=== PATIENT | female | born 1940 | race Caucasian/White ===

== ENCOUNTER 2017-05-24 13:19 | Inpatient (IN) | payer MEDICARE ==
[~2017-05-24] VITALS: Ht 170.2 cm; Wt 58.5 kg
[2017-05-24] MEDS: LEVALBUTEROL HCL SOLN NEBU 0.63 MG/3 ML NEB INH SCH (00:35)
[2017-05-24] MEDS: IPRATROPIUM BROMIDE 0.02% 2.5 ML NEB NEB SCH (00:35)
[~2017-05-24 13:19] MED LIST: ALPRAZOLAM0.25 MG; FOLIC ACID1 MG; MEDROL4 MG; METHOTREXATE2.5 MG PO; MEVACOR20 MG PO; PREVACID30 MG
[2017-05-24] MEDS ORDERED: SODIUM CHLORIDE 0.9% 500ML 500 ML IV STA (13:26)
[2017-05-24] MEDS ORDERED: IPRATROPIUM BROMIDE 0.02% 2.5 ML NEB NEB STA (13:26)
[2017-05-24] MEDS ORDERED: ALBUTEROL SULF 0.083% NEB SOLN 3 ML NEB NEB STA (13:26)
[2017-05-24 13:47] LABS: BILIRUBIN,URINE 1+ (NEGATIVE); KETONES,URINE TRACE (NEGATIVE); LEUKOCYTE ESTERASE ,URINE 2+ (NEGATIVE); NITRITE,URINE NEGATIVE (NEGATIVE); URINE UROBILINOGEN 8 mg/dL (0.2 - 1)
[2017-05-24 13:49] LABS: CLARITY,URINE HAZY (CLEAR); COLOR,URINE YELLOW (YELLOW); PROTEIN,URINE DIPSTICK 2+ (NEGATIVE)
[2017-05-24 14:01] LABS: AMORPHOUS SEDIMENT,URINE FEW (FEW); BACTERIA,URINE MODERATE /HPF; EPITHELIAL CELLS,URINE FEW /LPF; HYALINE CASTS 0-1 (0-1); RBC,URINE 0-5 /HPF (0-5)
[2017-05-24 14:12] LABS: INFLUENZAE A&B ANTIGEN (RAPID) NEGATIVE (NEGATIVE); STREPTOCOCCUS GRP A ANTIGEN NEGATIVE (NEGATIVE)
[2017-05-24 14:14] LABS: BASOPHILS # (AUTO) 0.1 (0.0-0.1); BASOPHILS % 0.3 % (0.0-1.0); EOSINOPHILS # (AUTO) 0.1 (0.0-0.4); EOSINOPHILS % 0.3 % (0.0-6.0); HEMATOCRIT 41.3 % (34.2-44.1); HEMOGLOBIN 13.2 g/dL (12.0-16.0); LYMPHOCYTES # (AUTO) 1.4 (1.0-3.2); MEAN CORPUSCULAR HEMOGLOBIN 29.5 pg (28-32); MEAN CORPUSCULAR VOLUME 92.4 fL (81-99); MONOCYTES # (AUTO) 2.2 (0.2-0.8); MONOCYTES % 11.5 % (4.4-11.3); NEUTROPHILS # (AUTO) 15.6 (2.1-6.9); NEUTROPHILS % 80.1 % (38.7-80.0); PLATELET COUNT 340 x10e3/uL (140-360); RED BLOOD COUNT 4.47 x10e6/uL (3.6-5.1); RED CELL DISTRIBUTION WIDTH 14.5 % (11.7-14.4)
[2017-05-24] MEDS ORDERED: SODIUM CHLORIDE 0.9% 1000ML 1,000 ML IV STA ×3 (14:19→16:07)
[2017-05-24] MEDS ORDERED: ENOXAPARIN SODIUM INJ 100 MG/ML SYR SC STA (14:26)
[2017-05-24 14:27] LABS: INR 1.11; PROTHROMBIN TIME 14.9 seconds (11.9-14.5)
[2017-05-24] MEDS ORDERED: DILTIAZEM HCL 5 MG/ML 5 ML VIAL IV ONE ×2 (14:30→15:30)
[2017-05-24 14:35] LABS: ALBUMIN 3.1 g/dL (3.5-5.0); ALBUMIN/GLOBULIN RATIO 0.8 (0.8-2.0); ANION GAP 14.7 mmol/L (8-16); CALCIUM 9.6 mg/dL (8.4-10.2); CREATININE, SERUM 1.02 mg/dL (0.57-1.11); MAGNESIUM 1.6 MG/DL (1.3-2.1); POTASSIUM 3.7 mmol/L (3.5-5.1)
[2017-05-24 14:58] LABS: CREATINE KINASE MB 1.1 ng/mL (0.00-5.00); THYROID STIMULATING HORMONE 0.913 uIU/mL (0.350-4.940)
[2017-05-24] MEDS ORDERED: DILTIAZEM HCL VIAL 5 ML ONE (15:08)
[2017-05-24] MEDS ORDERED: SODIUM CHLORIDE 0.9% 1000ML 1,000 ML ONE (15:08)
[2017-05-24] MEDS ORDERED: AMIODARONE 900MG 500 ML IV ONE (15:23)
[2017-05-24] MEDS ORDERED: AMIODARONE HCL 100 ML IV ONE (15:24)
[2017-05-24 15:27] LABS: B-TYPE NATRIURETIC PEPTIDE2 239.4 pg/mL (0-100)
--- NOTE | 2017-05-24 15:33 | Diagnostic Imaging Report ---
EXAMINATION: CHEST SINGLE (PORTABLE) INDICATION: Cough and congestion. \S\ORDER PLACED BY \S\[id number] \S\[id number] \S\Y COMPARISON: None available. FINDINGS: AP view TUBES and LINES: None. LUNGS: Lungs are hyperinflated. Bilateral upper lobe opacities, left more than right. PLEURA: No pleural effusion or pneumothorax. HEART AND MEDIASTINUM: The cardiomediastinal silhouette is unremarkable. Aorta is calcified and tortuous. BONES AND SOFT TISSUES: No acute osseous lesion. Soft tissues are unremarkable. UPPER ABDOMEN: No free air under the diaphragm. IMPRESSION: Bilateral upper lobe airspace opacities, left more than right, concerning for pneumonia. Emphysematous changes. Signed by: Dr. Danilo Newton MD on 05/24/2017 3:30 PM
[2017-05-24] MEDS ORDERED: CEFTRIAXONE SOD 1 GM VIAL IV ONE (16:00)
[2017-05-24] MEDS ORDERED: AMIODARONE HCL 900 MG in DEXTROSE 5 % 500ML BOTTLE 482 ML IV SCH ×2 (16:00→16:30)
[2017-05-24] MEDS ORDERED: LEVALBUTEROL HCL SOLN NEBU 0.63 MG/3 ML NEB INH ONE (16:00)
[2017-05-24] MEDS ORDERED: CEFTRIAXONE SOD 1 GM VIAL IV SCH (16:00)
[2017-05-24] MEDS ORDERED: SODIUM CHLORIDE 0.9% 1000ML 1,000 ML IV SCH (16:12)
[2017-05-24] MEDS ORDERED: AMIODARONE HCL 150 MG/100 ML BAG IV ONE (16:30)
[2017-05-24] MEDS: AZITHROMYCIN 500MG/NS 250 ML 250 ML IV SCH (16:31)
[2017-05-24] MEDS ORDERED: VITAMIN D35000 UNI1 PO (16:35)
[2017-05-24] MEDS ORDERED: LOVASTATIN20 MG PO (16:35)
[2017-05-24] MEDS ORDERED: methylprednisolone PO (16:35)
[2017-05-24] MEDS ORDERED: [UNRECOGNIZED DRUG - OTHER] (16:35)
[2017-05-24] MEDS ORDERED: DIGOXIN INJ 0.25 MG/ML 2 ML AMP IV ONE ×3 (17:00→18:30)
[2017-05-24] MEDS ORDERED: DIGOXIN INJ 0.25 MG/ML 2 ML AMP ONE (17:16)
[2017-05-24 17:51] LABS: FREE T4 (FREE THYROXINE) 1.63 ng/dL (0.8-1.8); FREE THYROXINE INDEX 3.2116 (1.4-3.8)
[2017-05-24 18:06] LABS: ABG HCO3 22 mmol/L (23-28); ABG PCO2 47 mmHg (41-51); ABG PH 7.27 (7.31-7.41); ABG PO2 304 mmHg (80-105)
[2017-05-24] MEDS: RIVAROXABAN 15 MG TABLET PO SCH (18:20)
--- NOTE | 2017-05-24 18:22 | Consultation ---
DATE OF CONSULTATION: CARDIOLOGY CONSULTATION ATTENDING PHYSICIAN: Dr. Mark Dewitt. CLINICAL HISTORY: This is a 76-year-old white woman with history of COPD possibly related to secondhand smoking, possibly related to asbestosis exposure. Seen in the emergency room at [facility]. Referred by Dr. Mark Dewitt because of rapid atrial fibrillation with ventricular rates of 180 beats per minute with hypotension, blood pressure 84/52. The patient was given almost 3 liters of saline because of low blood pressure. She states that she has been drinking water all day, approximately on the average of 3 bottles per day. This patient has no previous history of atrial fibrillation, no previous history of cardiac arrhythmias. However, she says she has been having some palpitations over the past 3 months, possibly worse in the past week or so. She has been wheezing for quite some time, possibly 6 months to a year. Has seen Dr. Mark Dewitt for 3 years with diagnosis of COPD. However, wheezing appears to be worse. She also has been sleepy. She sees a sensor technician because of rheumatoid arthritis and it was suggested by the sensor technician some time back that she may need a blood thinner. There is no previous mention of atrial fibrillation, however. PAST MEDICAL HISTORY: Remarkable for the above-mentioned conditions. There is history of hyperlipidemia, on lovastatin. She is taking methotrexate, Medrol, as well as folic acid, vitamin D3. PERSONAL AND SOCIAL HISTORY: Stopped smoking at age 20. was a heavy smoker. 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 REVIEW OF SYSTEMS: Noncontributory. FAMILY HISTORY: Deferred. PHYSICAL EXAMINATION GENERAL: She is thin, appears to be wheezing. CARDIAC: Jugular veins were mildly distended. S1 and S2 were irregularly irregular, rapid. LUNGS: Show wheezing. ABDOMEN: Soft. Bowel sounds were present. EXTREMITIES: Show no cyanosis, clubbing or edema. LABORATORY STUDIES: Electrocardiogram showed atrial fibrillation, rapid ventricular response 181 beats per minute. After digoxin and Cardizem, heart rate dropped to 101. IMPRESSION 1. Rapid atrial fibrillation with ventricular rates of 181 beats per minute of undetermined age, possibly as old as 3 months. The patient has had some complaints of palpitations over the past 3 months. This may actually cause her low blood pressure rather than dehydration. 2. Somewhat doubtful for the dehydration since the patient has been drinking water constantly, on the average 3 bottles per day. 3. Her hypotension may also be caused by measurement error since the patient has rapid atrial fibrillation. 4. Chronic obstructive pulmonary disease, possibly due to secondhand smoke. 5. Rule out pulmonary asbestosis with the being a sandblaster glass and possible asbestos exposure. 6. Rheumatoid arthritis. 7. Hyperlipidemia. RECOMMENDATION: Rate control for the time-being. Consider transesophageal echocardiogram and electrical cardioversion. Consider cardioversion if there is further hemodynamic instability or inability to slow down the rate. Anticoagulation. Treatment for COPD since she is wheezing. Avoid excessive volume overload. The patient has already received 2.5 to 3 liters of saline. Echocardiogram is pending. Thyroid function studies are pending. Job#: [id number] cc:MARK DEWITT MD
[2017-05-24] MEDS ORDERED: POTASSIUM CHLORIDE 10 MEQ TABCR PO ONE (18:30)
[2017-05-24] MEDS ORDERED: FUROSEMIDE INJ 10 MG/ML 4 ML VIAL IV ONE (18:30)
[2017-05-24] MEDS ORDERED: HYDROCORTISONE SOD SUCCINATE 100 MG VIAL IV ONE (18:30)
--- NOTE | 2017-05-24 20:35 | Diagnostic Imaging Report ---
EXAM: CT Chest WITH contrast 05/24/2017 2:26 PM INDICATION: Pulmonary embolism, atrial fibrillation. COMPARISON: Chest x-ray on 05/24/2017. TECHNIQUE: Chest was scanned utilizing a multidetector helical scanner from the lung apex through the level of the adrenal glands without administration of IV contrast. Coronal and sagittal reformations were obtained. Routine protocol was performed. IV CONTRAST: 100 mL of Isovue-370 RADIATION DOSE: Total DLP: 397.28 mGy*cm Estimated effective dose: (DLP x 0.014 x size factor) mSv COMPLICATIONS: None. FINDINGS: LINES/ TUBES: None. LUNGS AND AIRWAYS: Extensive bilateral apical scarring and bronchiectasis with cavitary lesions including some areas in the left upper lobe peripheral pleural-based opacities and lingula. The scarring, cavitary lesions and traction bronchiectasis are most likely related to prior granulomatous disease. Some of the cavities in the right apex are filled with a nodular component as seen on series 2, image 24 suspicious for fungal infection. There is a 2.2 cm pleural-based nodule in the left upper lobe on series 2, image 37 Airways are normal. PLEURA: Small bilateral pleural effusions left greater than right. HEART AND MEDIASTINUM: The thyroid gland is normal. No mediastinal, hilar or axillary lymphadenopathy. The heart is normal in size.. There is no pericardial effusion. The pulmonary artery measures 3 cm in diameter, mildly dilated UPPER ABDOMEN: Large hiatal hernia visualized. BONES: There are degenerative changes in the thoracic spine. SOFT TISSUES: Unremarkable. IMPRESSION: 1. No evidence of pulmonary embolism. 2. Bilateral apical scarring, bronchiectasis and fibrosis most likely related to prior granulomatous disease. 3. Cavitary lesion filled with a soft tissue nodule may represent fungal infection in the appropriate clinical setting within the right upper lobe. 4. A 2.2 cm pleural-based nodule in the left upper lobe is suspicious for neoplasm. Signed by: Dr. Rojas Bennett M.D. on 05/24/2017 8:31 PM
[2017-05-24] MEDS ORDERED: ASPIRIN 81 MG CHEW TAB PO ONE (22:30)
[2017-05-24] MEDS ORDERED: SODIUM CHLORIDE 0.9% 50ML 50 ML ONE (23:21)
[2017-05-24] MEDS ORDERED: IOPAMIDOL 370 MG/ML 200 ML INFUS..BTL INJ ONE (23:21)
[2017-05-24 23:53] LABS: CREATINE KINASE MB 2.6 ng/mL (0.00-5.00)
[2017-05-25 06:06] LABS: ANION GAP 14.3 mmol/L (8-16); BLOOD UREA NITROGEN 15 mg/dL (7-26); BUN/CREATININE RATIO 19 (6-25); CALCIUM 8.3 mg/dL (8.4-10.2); CARBON DIOXIDE 25 mmol/L (22-29); CHLORIDE 105 mmol/L (98-107); EST GLOMERULAR FILTRATION RATE > 60 ML/MIN (60-); GLUCOSE 119 mg/dL (74-118); POTASSIUM 3.3 mmol/L (3.5-5.1); SODIUM 141 mmol/L (136-145)
[2017-05-25 06:37] LABS: CREATINE KINASE MB 2.5 ng/mL (0.00-5.00)
[2017-05-25] MEDS: IPRATROPIUM BROMIDE 0.02% 2.5 ML NEB NEB SCH ×2 (07:22→14:36)
[2017-05-25] MEDS: LEVALBUTEROL HCL SOLN NEBU 0.63 MG/3 ML NEB INH SCH ×2 (07:22→14:36)
[2017-05-25 07:34] LABS: BASOPHILS % 0.2 % (0.0-1.0); HEMATOCRIT 35.9 % (34.2-44.1); HEMOGLOBIN 11.3 g/dL (12.0-16.0); LYMPHOCYTES # (AUTO) 0.7 (1.0-3.2); LYMPHOCYTES % 5.4 % (18.0-39.1); MEAN CORPUSCULAR HEMOGLOBIN 29.4 pg (28-32); MEAN CORPUSCULAR HGB CONC 31.5 g/dL (31-35); MEAN CORPUSCULAR VOLUME 93.5 fL (81-99); MONOCYTES # (AUTO) 0.8 (0.2-0.8); MONOCYTES % 6.6 % (4.4-11.3); NEUTROPHILS # (AUTO) 10.9 (2.1-6.9); NEUTROPHILS % 86.7 % (38.7-80.0); PLATELET COUNT 324 x10e3/uL (140-360); RED BLOOD COUNT 3.84 x10e6/uL (3.6-5.1); RED CELL DISTRIBUTION WIDTH 14.5 % (11.7-14.4)
[2017-05-25] MEDS ORDERED: SODIUM CHLORIDE 0.9% 250ML 250 ML IV ONE ×2 (08:00→13:00)
[2017-05-25] MEDS ORDERED: CLINDAMYCIN PHOS 600 MG/ 4 ML VIAL IM ONE (08:00)
[2017-05-25] MEDS ORDERED: TRIMETHOPRIM/SULFAMETHOXAZOLE 160-800 MG TAB PO ONE (08:00)
[2017-05-25] MEDS: CEFTRIAXONE SOD 1 GM VIAL IV SCH ×2 (09:21→18:10)
[2017-05-25] MEDS: AZITHROMYCIN 500MG/NS 250 ML 250 ML IV SCH (09:21)
--- NOTE | 2017-05-25 09:48 | Cardiology Report ---
DATE OF STUDY: May 24, 2017 ECHOCARDIOGRAM M-MODE: Normal chamber sizes. Left ventricular hypertrophy. Normal contractility. Normal mitral and aortic valves. No pericardial effusion. SECTOR SCAN: Normal chamber sizes. Left ventricular hypertrophy. Normal contractility. Ejection fraction is approximately 60%. There is 1+ aortic regurgitation. Trace pulmonic and tricuspid regurgitation. Pulmonary artery systolic pressure estimated at 33 mmHg. There is evidence of diastolic dysfunction. CONCLUSIONS 1. Left ventricular hypertrophy with ejection fraction of approximately 60%. 2. Left atrial size within normal range. 3. Mild aortic regurgitation. 4. Evidence of diastolic dysfunction. 5. Trace tricuspid regurgitation without significant pulmonary hypertension with trace pulmonic regurgitation. Pulmonary artery systolic pressure estimated at 33 mmHg. Job#: [id number] cc:PROSPER MULLIGAN MD
[2017-05-25] MEDS ORDERED: POTASSIUM CHLORIDE 20 MEQ TAB CR PO STA (09:50)
[2017-05-25] MEDS ORDERED: SODIUM CHLORIDE 0.9% 1000ML 1,000 ML IV SCH (12:45)
[2017-05-25] MEDS ORDERED: SODIUM CHLORIDE 0.9% 250ML 250 ML ONE (12:46)
[2017-05-25 13:51] LABS: INR 1.59; PARTIAL THROMBOPLASTIN TIME 32.6 seconds (23.8-35.5); PROTHROMBIN TIME 19.8 seconds (11.9-14.5)
[2017-05-25 16:13] LABS: CREATINE KINASE MB 4.1 ng/mL (0.00-5.00)
--- NOTE | 2017-05-25 17:45 | Diagnostic Imaging Report ---
PROCEDURE: A single AP view of the chest. COMPARISON: 05/24/2017 INDICATIONS: LINE PLACEMENT FINDINGS: Lines/tubes: Status post left PICC placement with tip overlying mid to inferior SVC. Lungs: The lungs are well inflated. Biapical opacification, left more than right, are again seen. Retrocardiac opacification, representing hiatal hernia. Pleura: No visible pneumothorax. Small left pleural effusion. Heart and mediastinum: The heart and the mediastinum are unremarkable. Bones: No acute bony abnormality. IMPRESSION: Status post left PICC line placement with tip overlying mid to inferior SVC. No visible pneumothorax. Hiatal hernia. Small left pleural effusion. Biapical scarring and bronchiectasis. Underlying pneumonia cannot be entirely excluded. Dictated by: Danilo Newton M.D. on 05/25/2017 at 17:54 Electronically approved by: Danilo Newton M.D. on 05/25/2017 at 17:54
[2017-05-25] MEDS: RIVAROXABAN 15 MG TABLET PO SCH (18:10)
[2017-05-25] MEDS: METHYLPREDNISOLONE SOD SUCC 40 MG/ML VIAL IV SCH (21:03)
[2017-05-26] MEDS: LEVALBUTEROL HCL SOLN NEBU 0.63 MG/3 ML NEB INH SCH ×4 (00:10→23:17)
[2017-05-26] MEDS: IPRATROPIUM BROMIDE 0.02% 2.5 ML NEB NEB SCH ×4 (00:10→23:17)
[2017-05-26] MEDS ORDERED: SODIUM CHLORIDE 0.9% 1000ML 1,000 ML ONE (03:24)
[2017-05-26 06:12] LABS: BASOPHILS % 0.3 % (0.0-1.0); HEMATOCRIT 37.6 % (34.2-44.1); HEMOGLOBIN 12.2 g/dL (12.0-16.0); LYMPHOCYTES # (AUTO) 0.7 (1.0-3.2); LYMPHOCYTES % 4.4 % (18.0-39.1); MEAN CORPUSCULAR HEMOGLOBIN 29.7 pg (28-32); MEAN CORPUSCULAR HGB CONC 32.4 g/dL (31-35); MEAN CORPUSCULAR VOLUME 91.5 fL (81-99); MONOCYTES # (AUTO) 0.3 (0.2-0.8); MONOCYTES % 1.9 % (4.4-11.3); NEUTROPHILS # (AUTO) 13.7 (2.1-6.9); NEUTROPHILS % 92.1 % (38.7-80.0); PLATELET COUNT 379 x10e3/uL (140-360); RED BLOOD COUNT 4.11 x10e6/uL (3.6-5.1); RED CELL DISTRIBUTION WIDTH 14.5 % (11.7-14.4)
[2017-05-26 06:52] LABS: ALANINE AMINOTRANSFERASE 21 IU/L (0-55); ALBUMIN 2.7 g/dL (3.5-5.0); ALBUMIN/GLOBULIN RATIO 0.7 (0.8-2.0); ALKALINE PHOSPHATASE 96 IU/L (40-150); ANION GAP 14.9 mmol/L (8-16); BLOOD UREA NITROGEN 16 mg/dL (7-26); BUN/CREATININE RATIO 22 (6-25); CALCIUM 8.8 mg/dL (8.4-10.2); CARBON DIOXIDE 21 mmol/L (22-29); CHLORIDE 109 mmol/L (98-107); CREATININE, SERUM 0.74 mg/dL (0.57-1.11); EST GLOMERULAR FILTRATION RATE > 60 ML/MIN (60-); GLUCOSE 138 mg/dL (74-118); POTASSIUM 3.9 mmol/L (3.5-5.1); SODIUM 141 mmol/L (136-145)
[2017-05-26] MEDS: FOLIC ACID 1 MG TAB PO SCH (11:00)
[2017-05-26 11:10] VITALS: BP 163/57
[2017-05-26] MEDS ORDERED: SODIUM CHLORIDE 0.9% 250ML 250 ML ONE (11:27)
[2017-05-26] MEDS: METHYLPREDNISOLONE SOD SUCC 40 MG/ML VIAL IV SCH ×2 (11:30→20:17)
[2017-05-26] MEDS: CEFTRIAXONE SOD 1 GM VIAL IV SCH ×2 (11:30→17:00)
[2017-05-26] MEDS: AMIODARONE HCL 200 MG TAB PO SCH (11:30)
[2017-05-26 11:43] VITALS: BP 163/57
[2017-05-26] MEDS: AZITHROMYCIN 500MG/NS 250 ML 250 ML IV SCH (11:59)
[2017-05-26 16:08] VITALS: BP 114/49
[2017-05-26] MEDS: RIVAROXABAN 15 MG TABLET PO SCH (17:47)
[2017-05-26] MEDS ORDERED: IOPAMIDOL 370 MG/ML 200 ML INFUS..BTL INJ ONE (18:24)
[2017-05-26] MEDS ORDERED: SODIUM CHLORIDE 0.9% 50ML 50 ML ONE (18:24)
--- NOTE | 2017-05-26 18:58 | Diagnostic Imaging Report ---
Examination: Cervical CT Angiogram with Contrast Clinical indication:Atrial fibrillation. Attention to the left subclavian artery Comparison studies:None Technique: Axial images were obtained from the thoracic inlet. Coronal and sagittal images reconstructed from the axial data. Intravenous contrast: 100 cc of Omnipaque 300. Computer generated maximum intensity projection images were performed of the bilateral carotid bifurcations and the aortic arch with bilateral common carotid and cervical internal carotid arteries on a separate workstation. Degree of stenosis at the carotid bulbs, if present, will be calculated using NASCET criteria where the smallest diameter at the location of stenosis is compared to the diameter of the more distal non-diseased vessel lumen. Findings: Aortic arch and major vessels: Patent. Atherosclerotic calcification. Severe narrowing of the proximal left subclavian artery due to calcific plaque. Common carotid arteries: Patent. Nonstenotic atherosclerotic calcification bilaterally which extends to the bilateral carotid bifurcations. Cervical carotid bifurcations: Right: Patent. Left :Patent. Internal carotid arteries: Right: Patent. Nonstenotic atherosclerotic calcification proximally. Left: Patent. Nonstenotic atherosclerotic calcification proximally. Vertebral arteries: Patent. IMPRESSION: 1. Severe narrowing of the proximal left subclavian artery due to calcific plaque. 2. No stenosis or occlusion of the carotid or vertebral arteries. 3. Nonstenotic atherosclerotic calcification in the aortic arch and bilateral carotid arteries. Signed by: Dr. aMranda Napier M.D. on 05/26/2017 6:54 PM
[2017-05-26 20:00] VITALS: BP_SYST 127; BP_SYST 158; BP_DIAS 60; BP_DIAS 62
[2017-05-26] MEDS ORDERED: NON-FORMULARY MEDICATION (Lovastatin 20 MG) PO SCH (21:00)
[2017-05-26] MEDS ORDERED: SIMVASTATIN 20 MG TAB PO SCH (21:00)
[2017-05-26 21:34] VITALS: BP 158/60
[2017-05-27] VITALS: BP 162/66
[2017-05-27 05:16] VITALS: BP 158/65
[2017-05-27] MEDS: LEVALBUTEROL HCL SOLN NEBU 0.63 MG/3 ML NEB INH SCH ×2 (07:00→14:47)
[2017-05-27] MEDS: IPRATROPIUM BROMIDE 0.02% 2.5 ML NEB NEB SCH ×2 (07:00→14:48)
[2017-05-27 07:15] VITALS: BP 165/62
[2017-05-27 07:22] LABS: ANION GAP 9.9 mmol/L (8-16); BLOOD UREA NITROGEN 17 mg/dL (7-26); BUN/CREATININE RATIO 25 (6-25); CALCIUM 8.6 mg/dL (8.4-10.2); CARBON DIOXIDE 28 mmol/L (22-29); CHLORIDE 109 mmol/L (98-107); CREATININE, SERUM 0.68 mg/dL (0.57-1.11); EST GLOMERULAR FILTRATION RATE > 60 ML/MIN (60-); GLUCOSE 135 mg/dL (74-118); POTASSIUM 3.9 mmol/L (3.5-5.1); SODIUM 143 mmol/L (136-145)
[2017-05-27 07:53] VITALS: BP 165/62
[2017-05-27] MEDS: CEFTRIAXONE SOD 1 GM VIAL IV SCH (08:00)
[2017-05-27] MEDS ORDERED: NON-FORMULARY MEDICATION (Cholecalciferol (Vitamin D3) (Vitamin D3) 1 TAB) PO SCH (09:00)
[2017-05-27] MEDS ORDERED: CHOLECALCIFEROL 1,000 UNIT TAB PO SCH (09:00)
[2017-05-27] MEDS: AZITHROMYCIN 500MG/NS 250 ML 250 ML IV SCH (09:32)
[2017-05-27] MEDS: AMIODARONE HCL 200 MG TAB PO SCH (09:32)
[2017-05-27] MEDS: FOLIC ACID 1 MG TAB PO SCH (09:32)
[2017-05-27] MEDS: METHYLPREDNISOLONE SOD SUCC 40 MG/ML VIAL IV SCH (09:32)
--- NOTE | 2017-05-27 11:05 | Diagnostic Imaging Report ---
EXAM: CTA Chest WITH contrast. DATE: 05/26/2017 10:43 AM INDICATION: COMPARISON: Routine chest CT 05/24/2017 TECHNIQUE: CT angiogram of the chest was obtained after the administration of IV contrast. Prospective gating was performed. Images reviewed in the axial, coronal, and sagittal planes. 3D reconstructions performed on off-line workstation. IV Contrast: 100 mL Isovue-370. Total DLP: 247 mGy*cm Est. Eff. Dose DLP x 0.015 x size factor mSv (CTDIvol has been reviewed and is below limits set by [facility]). FINDINGS: Lines and Tubes: Left PICC line with tip extending to the cavoatrial junction. Lower Neck: Coarse calcification left thyroid lobe. Heart and Great Vessels: The pulmonary artery measure 32 mm. The cardiothoracic radio measures 03/24. No significant pericardial effusion. No central pulmonary embolus identified. Aortic and coronary artery vascular calcifications present. Mild to moderate atherosclerotic changes are present at the origin of the right brachycephalic and left common carotid arteries. Severe vascular calcifications are present in the proximal left subclavian artery. Degree of calcification and motion artifact limits evaluation; however, stenosis is felt to be severe with occlusion and reconstitution from the left vertebral artery possible. Aortic Annulus: 20 mm. Sinus of Valsalva: 27 mm. Ascending Aorta at level of PA: 27 mm. Mid Arch: 22 mm. Proximal Descendin mm. Mid Descendin mm. Distal Descendin mm. Other: Moderate atherosclerotic changes with no dissection. Lymph Nodes: 12 x 9 mm precarinal. 12 x 9 mm left clavicular. Lungs: No pneumothorax present. There is a trace right and a small left pleural effusion, simple appearing. Linear opacities in the lung bases have the appearance of atelectasis. Areas of scarring, bronchiectasis, and distortion present in the upper lobes. On axial image 30 there is a questionable 9 mm fungus ball within area of cystic bronchiectasis in the right upper lobe. Pleural-based nodular density measuring 31 x 16 mm axial image 45. Minimal tree-in-bud opacities present in the lingula. Upper abdomen: Moderate hiatal hernia. Bones and Soft Tissues: Degenerative changes spine. IMPRESSION: 1. Severe atherosclerotic changes of the proximal 20 mm of the left subclavian artery. Artifact from calcification and motion limits evaluation. It is unclear whether this represents severe stenosis or occlusion with reconstitution of the left vertebral artery. Doppler evaluation may be of additional benefit. 2. Severe scarring, volume loss, architectural distortion, and bronchiectasis in the upper lungs statistically representing sequela of prior infectious processes, such as tuberculosis. There is a questionable mycetoma within an area of cystic bronchiectasis in the right upper lobe. Given tree-in-bud opacities in the lingula, superimposed acute infectious process possible. 3. 31 x 16 mm pleural nodularity on the left likely related to above described chronic process. Superimposed malignancy would be difficult to exclude. CT follow-up recommended. 4. Marked dilation of pulmonary arteries suggesting pulmonary hypertension. 5. Moderate to large hiatal hernia. Superimposed aspiration not excluded. 6. Small asymmetric to the left pleural effusions. Signed by: Dr. John Buck MD on 05/27/2017 11:01 AM
[2017-05-27 11:46] VITALS: BP 152/63
[2017-05-27] MEDS ORDERED: AMIODARONE HCL200 MG PO (14:13)
[2017-05-27] MEDS ORDERED: XARELTO20 MG PO (14:14)
[2017-05-28] MEDS ORDERED: LOSARTAN POTASSIUM 25 MG TAB PO SCH (09:00)
== END 2017-05-27 14:45 | disposition home or self-care (01) | DRG 191 ==
LOC: ER 13:19 → ERHOLD 16:51 → MED/SURG3 05-26 09:39
PROVIDERS: ADMIT Internal Medicine Critical Care Medicine; ATTEND Internal Medicine Critical Care Medicine
PROC: 02HV33Z Insertion of Infusion Device into Superior Vena Cava, Percutaneous Approach (ICD-10-PCS; principal; 2017-05-25)
DX: J47.1 Bronchiectasis with (acute) exacerbation (principal); N39.0 Urinary tract infection, site not specified; I48.91 Unspecified atrial fibrillation; M06.9 Rheumatoid arthritis, unspecified; Z77.090 Contact with and (suspected) exposure to asbestos; P96.81 Exposure to (parental) (environmental) tobacco smoke in the perinatal period; R91.1 Solitary pulmonary nodule; E78.5 Hyperlipidemia, unspecified; I70.8 Atherosclerosis of other arteries
CPT/HCPCS: 36415; 36569; 36600; 70498; 71045; 71260; 71275; 74470; 80048; 80053; 81001; 82550; 82553; 82805; 83518; 83605; 83735; 83880; 84436; 84439; 84443; 84479; 84481; 84484; 85025; 85610; 85730; 86606; 86612; 86635; 86698; 87040; 87070; 87086; 87205; 87385; 87400; 93005; 93306; 94640; 96367; 99285; J0456; J0696; J1160; J1650; J1720; J1940; J2920; J7030; J7040; J7050; Q9967

== ENCOUNTER → 2017-08-27 | Outpatient (CLI) | payer MEDICARE ==
[~2017-08-27] MED LIST changes: +AMIODARONE HCL200 MG PO; +LOVASTATIN20 MG PO; +VITAMIN D35000 UNI1 PO; +XARELTO20 MG PO; +[UNRECOGNIZED DRUG - OTHER]; +methylprednisolone PO
--- NOTE | 2017-08-27 11:45 | Diagnostic Imaging Report ---
PROCEDURE: CT CHEST WITHOUT CONTRAST CT scan of the chest WITHOUT intravenous contrast, using standard protocol. TECHNIQUE: The chest was scanned utilizing a multidetector helical scanner from the apex to the level of the adrenal glands. No IV contrast was administered because of referring physician request Coronal and sagittal multiplanar reformations were obtained. COMPARISON: CT chest with contrast 05/24/2017. INDICATIONS: LUNG SCARING ABN CXR FINDINGS: Lines/tubes: None. Lungs and Airways: Biapical fibrocalcific changes with associated parenchymal scar and traction bronchiectasis are unchanged. As before, there is a filling defect within a right upper lobe bronchus seen on series 3 image 29. Lingular juxtapleural nodular consolidation from the prior examination has resolved. Background pulmonary hyperinflation is unchanged. No new consolidations or mass lesions. Pleura: Left greater than right apical pleural thickening. Heart and mediastinum: Coarsely calcified left thyroid nodule, unchanged. No ectasia or aneurysmal dilatation of the thoracic aorta. Atherosclerotic calcification of the abdominal aorta, coronary arteries, and great vessel origins. Occlusion of the proximal left subclavian artery is again suspected. Trace pericardial effusion. Mitral annular calcifications. Enlargement of the pulmonary outflow tract (3.3 cm), compatible with pulmonary hypertension. Large sliding hiatal hernia, unchanged. Soft tissues: No focal soft tissue abnormalities. Abdomen: Visualized portions of the liver, gallbladder, spleen, pancreas, adrenals, and kidneys are remarkable only for a centimeter hypoattenuating lesion in segment 4B, too small to further characterize though likely represent a small cyst, unchanged compared to 05/24/2017. Bones: No osseous destructive lesions. Background diffuse osteopenia. IMPRESSION: 2.2 cm juxtapleural lingular nodular opacity described on the comparison study 05/24/2017 has resolved and was presumably infectious in nature. Unchanged left greater than right apical pleural-parenchymal scar with traction bronchiectasis. As before, there is a nodular filling defect within a dilated right apical bronchus, which may represent a mycetoma in the appropriate clinical setting. No new air space consolidations. Background emphysematous changes with enlargement of the pulmonary outflow tract compatible with pulmonary hypertension. Atherosclerotic vascular disease. Large sliding hiatal hernia. Dictated by: Ric Ortiz M.D. on 08/27/2017 at 11:47 Electronically approved by: Ric Ortiz M.D. on 08/27/2017 at 11:47
== END ==
LOC: CT 10:49
PROVIDERS: ATTEND Internal Medicine Critical Care Medicine
DX: J47.9 Bronchiectasis, uncomplicated (principal); R91.8 Other nonspecific abnormal finding of lung field
CPT/HCPCS: 71250

== ENCOUNTER → 2017-11-21 | Outpatient (CLI) | payer MEDICARE ==
--- NOTE | 2017-11-21 10:12 | Diagnostic Imaging Report ---
Examination: Single AP view of the chest. COMPARISON: None. INDICATION: Cough DISCUSSION: Lines/tubes: None. Lungs: By apical upper lobe scarring. No new consolidation. Hiatal hernia. Pleura: There is no pleural effusion or pneumothorax. Heart and mediastinum: Heart size normal. Aortic calcifications. Bones and soft tissues: No acute bony abnormalities. Degenerative changes in the thoracic spine. IMPRESSION: Biapical scarring likely from prior tuberculosis infection. No acute cardiopulmonary disease. Signed by: Dr. Willie Martinez M.D. on 11/21/2017 10:09 AM
== END ==
LOC: RAD 09:41
PROVIDERS: ATTEND Internal Medicine Cardiovascular Disease
DX: R07.9 Chest pain, unspecified (principal)
CPT/HCPCS: 71046

== ENCOUNTER → 2018-08-25 | Outpatient (CLI) | payer MEDICARE ==
--- NOTE | 2018-08-25 13:26 | Diagnostic Imaging Report ---
EXAM: CT Chest without contrast INDICATION: Bronchiectasis COMPARISON: CT chest with contrast 05/24/2017, CT chest 05/26/2017. TECHNIQUE: Chest was scanned utilizing a multidetector helical scanner from the lung apex through the level of the adrenal glands without administration of IV contrast. Coronal and sagittal reformations were obtained. Routine protocol was performed. RADIATION DOSE: Total DLP: 299.2 mGy*cm Dose modulation, iterative reconstruction, and/or weight based adjustment of the mA/kV was utilized to reduce the radiation dose to as low as reasonably achievable. COMPLICATIONS: None. FINDINGS: LINES/ TUBES: None. LUNGS AND AIRWAYS: Extensive bilateral apical scarring and upper lobe predominant traction bronchiectasis is again noted. A previously noted pleural-based nodular consolidation in the left upper lobe as well as patchy consolidation has resolved. Again noted is a cavity in the right upper lobe with a 9 mm nodular component, as seen on series 3, image 29. Persistent tree-in-bud and interstitial opacities with pleural scarring in the right lower lobe, for example on image 49 There are scattered tree-in-bud nodules and mucoid impaction, for example in the left upper lobe on series 3, image 43 and lingula on image 62. Interval development of multifocal tree-in-bud nodules in the left lower lobe, for example on image 95. PLEURA: Interval resolution of small bilateral pleural effusions. HEART AND MEDIASTINUM: The thyroid gland is normal. No mediastinal, hilar or axillary lymphadenopathy. No cardiomegaly. Trace pericardial fluid. Extensive atherosclerotic changes of the thoracic aorta and branch vessels. There is dense calcific plaque within the left proximal subclavian artery, as before. The pulmonary artery measures 3 cm in diameter, mildly dilated UPPER ABDOMEN: Large hiatal hernia. The liver is hyperdense. BONES: There are degenerative changes in the thoracic spine. No suspicious lytic or blastic lesions. SOFT TISSUES: Unremarkable. IMPRESSION: Bilateral apical scarring, bronchiectasis and fibrosis consistent with prior granulomatous disease. Interval resolution of multifocal consolidative and nodular opacities in the left upper lobe, consistent clearing infection. New scattered tree-in-bud opacities, likely reflecting infection. Similar appearance of right upper lobe cavitary lesion with an internal soft tissue nodule may represent fungal infection in the appropriate clinical setting. Hyperdense liver, which is a non-specific finding and could reflect hemosiderosis or amiodarone exposure in the appropriate clinical setting. Signed by: Dr. Sylvester Orona MD on 08/25/2018 1:22 PM
== END ==
LOC: CT 10:30
PROVIDERS: ATTEND Internal Medicine Critical Care Medicine
DX: J47.9 Bronchiectasis, uncomplicated (principal)
CPT/HCPCS: 71250

== ENCOUNTER 2019-04-06 13:26 | Inpatient (IN) | payer MEDICARE ==
[~2019-04-06] VITALS: Ht 154.9 cm; Wt 56.0 kg
[~2019-04-06 13:26] MED LIST changes: +CEFTRIAXONE SOD 1 GM/NS 50 ML 50 ML IV SCH
--- OUTSIDE RECORDS SUMMARY | 2019-04-06 13:29 | XMS REPORT ---
Author Author [facility] Address Unknown Phone Unavailable Care Team Providers Care Billboard Mechanic Name Role Phone MARK DEWITT Unavailable Unavailable Luis F ARELLANO Unavailable Unavailable Payers Payer Name Policy Type Policy Number Effective Date Expiration Date Problems This patient has no known problems. Allergies, Adverse Reactions, Alerts Allergy Name Allergy Type Status Severity Reaction(s) Onset Date Inactive Date Treating Clinician Comments Sulfa (Sulfonamide Antibiotics) DA Active OR 2014-10-24 00:00:00 adhesive DA Active OR 2014-10-24 00:00:00 TAPE DA Active OR 2014-10-24 00:00:00 Medications This patient has no known medications. Results Test Description Test Time Test Comments Text Results Atomic Results Result Comments CT CHEST WO 2018-08-25 13:04:00 [facility] [address] [place], [place] [address] Patient Name: KAMERON WINSTON MR #: [id number] : 1940 Age/Sex: 78/F Req #: [id number] Adm Physician: Ordered by: MARK DEWITT MD Report #: [id number] Location: DC Room/Bed: Procedure: [id number] CT/CT CHEST WO Exam Date: 08/25/18 Exam Time: 1100 REPORT STATUS: Signed EXAM: CT Chest without contrast INDICATION: Bronchiectasis COMPARISON: CT chest with contrast 05/24/2017, CT chest 05/26/2017. TECHNIQUE: Chest was scanned utilizing a multidetector helical scanner from the lung apex through the level of the adrenal glands without administration of IV contrast. Coronal and sagittal reformations were obtained. Routine protocol was performed. RADIATION DOSE: Total DLP: 299.2 mGy*cm Dose modulation, iterative reconstruction, and/or weight based adjustment of the mA/kV was utilized to reduce the radiation dose to as low as reasonably achievable. COMPLICATIONS: None. FINDINGS: LINES/ TUBES: None. LUNGS AND AIRWAYS: Extensive bilateral apical scarring and upper lobe predominant traction bronchiectasis is again noted. A previously noted pleural-based nodular consolidation in the left upper lobe as well as patchy consolidation has resolved. Again noted is a cavity in the right upper lobe with a 9 mm nodular component, as seen on series 3, image 29. Persistent tree-in-bud and interstitial opacities with pleural scarring in the right lower lobe, for example on image 49 There are scattered tree-in-bud nodules and mucoid impaction, for example in the left upper lobe on series 3, image 43 and lingula on image 62. Interval development of multifocal tree-in-bud nodules in the left lower lobe, for example on image 95. PLEURA: Interval resolution of small bilateral pleural effusions. HEART AND MEDIASTINUM: The thyroid gland is normal. No mediastinal, hilar or axillary lymphadenopathy. No cardiomegaly. Trace pericardial fluid. Extensive atherosclerotic changes of the thoracic aorta and branch vessels. There is dense calcific plaque within the left proximal subclavian artery, as before. The pulmonary artery measures 3 cm in diameter, mildly dilated UPPER ABDOMEN: Large hiatal hernia. The liver is hyperdense. BONES: There are degenerative changes in the thoracic spine. No suspicious lytic or blastic lesions. SOFT TISSUES: Unremarkable. IMPRESSION: Bilateral apical scarring, bronchiectasis and fibrosis consistent with prior granulomatous disease. Interval resolution of multifocal consolidative and nodular opacities in the left upper lobe, consistent clearing infection. New scattered tree-in-bud opacities, likely reflecting infection. Similar appearance of right upper lobe cavitary lesion with an internal soft tissue nodule may represent fungal infection in the appropriate clinical setting. Hyperdense liver, which is a non-specific finding and could reflect hemos iderosis or amiodarone exposure in the appropriate clinical setting. Signed by: Dr. Jessica Batista MD on 08/25/2018 1:22 PM Dictated By: JESSICA BATISTA MD 21 Transcribed By: JORGE on 08/25/181321 COPY TO: MARK DEWITT MD BRONCHIAL WASHINGS 2018-05-13 14:38:00 RUN DATE: 05/13/18 [facility] - Lab PAGE 1 RUN TIME: 1438 Specimen Inquiry RUN USER: INTERFACE PATIENT: KAMERON WINSTON LOC: [facility] U #: [id number] AGE/SX: 77/F ROOM: RE05/12/18REG DR: Mark Dewitt MD : 42 BED: DIS: STATUS: [facility] [place] TLOC: SPEC #: [id number] RECD: 05/12/18 STATUS: HARSHA LARRY #: [id number] JYOTSNA: 05/12/18- SUBM DR: Mark Dewitt MD ENTERED: 05/12/18 SP TYPE: BRONCH WA OTHR DR: Isael Robertson DO ORDERED: GROSS COPIES TO: Mark Dewitt MD [address] [place], [place] [id number] Isael Robertson DO [address] [place], [place] [id number] PROCEDURES: GROSS (05/13/18-1213) TISSUES: 1. BRONCHIAL WASHINGS - 5ML CLOUDY FLUID 2. BRONCHIAL WASHINGS - 5ML PINK FLUID CLINICAL HISTORY COLLECTION DATE: 05/12/17 COUGH, BACK PAIN, HISTORY OF TB, WEIGHT LOSS FINAL DIAGNOSIS Long, left bronchial washing: NEGATIVE FOR MALIGNANCY Long, right bronchial washing: NEGATIVE FOR MALIGNANCY FA/sm D [phone], [phone] CONTINUED ON NEXT PAGE RUN DATE: 05/13/18 [facility] Lab PAGE 2 RUN TIME: 1438 Specimen Inquiry RUN USER: INTERFACE SPEC #: [id number] PATIENT: MARGARITAAUSTINKAMERON #[id number] (Continued) MACROSCOPIC The first specimen is designated as "bronch wash left lung" and consists of 5 mL of cloudy fluid to concentration and evalaution as (1). The second specimen is designated as "bronch wash right lung" and consists of 5 mL of pink fluid for concentration and evaluation as (2). GROSS PERFORMED AT [address] [address] [phone] MICROSCOPIC Smears, cytospins, and cell block on both specimens show columnar ciliated cells, alveolar macrophages, acute and chronic inflammatory cells and red blood cell. No malignant cells are seen. MICROSCOPIC PERFORMED AT [facility] All of the stains, including any controls performed, stain appropriately. [facility] [address] [place] [address] [phone] PERFORMING SITE Diagnosis performed at: [facility], [place] [address] [place] [address] Signed SIGNATURE ON FILE Henrietta Rosales MD 05/13/18 1438 END OF REPORT CHEST 2 VIEWS 2017-11-21 10:07:00 [place] [address] Patient Name: KAMERON WINSTON MR #: [id number] : 1940 Age/Sex: 77/F Req #: [id number] Adm Physician: Ordered by: LYNDON ARELLANO MD Report #: [id number] Location: [facility] Room/Bed: Procedure: [id number] DX/CHEST 2 VIEWS Exam Date: 11/21/17 Exam Time: 949 REPORT STATUS: Signed Examination: Single AP view of the chest. COMPARISON: None. INDICATION: Cough DISCUSSION: Lines/tubes: None. Lungs: By apical upper lobe scarring. No new consolidation. Hiatal hernia. Pleura: There is no pleural effusion or pneumothorax. Heart and mediastinum: Heart size normal. Aortic calcifications. Bones and soft tissues: No acute bony abnormalities. Degenerative changes in the thoracic spine. IMPRESSION: Biapical scarring likely from prior tuberculosis infection. No acute cardiopulmonary disease. Signed by: Dr. Moni Williamson M.D. on 11/21/2017 10:09 AM Dictated By: MONI WILLIAMSON MD 1009 Transcribed By: JORGE on 11/21/17 1009 COPY TO: LYNDON ARELLANO MD CT CHEST WO [place] [address] Patient Name: KAMERON WINSTON MR #: [id number] : 1940 Age/Sex: 77/F Req #: [id number] Adm Physician: Ordered by: MARK DEWITT MD Report #: [id number] Location: CT Room/Bed: Procedure: [id number] CT/CT CHEST WO Exam Date: Exam Time: REPORT STATUS: Signed PROCEDURE: CT CHEST WITHOUT CONTRAST CT scan of the chest WITHOUT intravenous contrast, using standard protocol. TECHNIQUE: The chest was scanned utilizing a multidetector helical scanner from the apex to the level of the adrenal glands. No IV contrast was administered because of referring physician request Coronal and sagittal multiplanar reformations were obtained. COMPARISON: CT chest with contrast 05/24/2017. INDICATIONS: LUNG SCARING ABN CXR FINDINGS: Lines/tubes: None. Lungs and Airways: Biapical fibrocalcific changes with associated parenchymal scar and traction bronchiectasis are unchanged. As before, there is a filling defect within a right upper lobe bronchus seen on series 3 image 29. Lingular juxtapleural nodular consolidation from the prior examination has resolved. Background pulmonary hyperinflation is unchanged. No new consolidations or mass lesions. Pleura: Left greater than right apical pleural thickening. Heart and mediastinum: Coarsely calcified left thyroid nodule, unchanged. No ectasia or aneurysmal dilatation of the thoracic aorta. Atherosclerotic calcification of the abdominal aorta, coronary arteries, and great vessel origins. Occlusion of the proximal left subclavian artery is again suspected. Trace pericardial effusion. Mitral annular calcifications. Enlargement of the pulmonary outflow tract (3.3 cm), compatible with pulmonary hypertension. Large sliding hiatal hernia, unchanged. Soft tissues: No focal soft tissue abnormalities. Abdomen: Visualized portions of the liver, gallbladder, spleen, pancreas, adrenals, and kidneys are remarkable only for a centimeter hypoattenuating lesion in segment 4B, too small to further characterize though likely represent a small cyst, unchanged compared to 05/24/2017. Bones: No osseous destructive lesions. Background diffuse osteopenia. IMPRESSION: 2.2 cm juxtapleural lingular nodular opacity described on the comparison study 05/24/2017 has resolved and was presumably infectious in nature. Unchanged left greater than right apical pleural-parenchymal scar with traction bronchiectasis. As before, there is a nodular filling defect within a dilated right apical bronchus, which may represent a mycetoma in the appropriate clinical setting. No new air space consolidations. Background emphysematous changes with enlargement of the pulmonary outflow tract compatible with pulmonary hypertension. Atherosclerotic vascular disease. Large sliding hiatal hernia. Dictated by: Mary Ortiz M.D. on 08/27/2017 at 11:47 Electronically approved by: Mary Ortiz M.D. on 08/27/2017 at 11:47 Dictated By: MARY ORTIZ MD 1147 Transcribed By: ENZO on 08/27/17 1147 COPY TO: MARK DEWITT MD CTA NECK [place] [address] Patient Name: KAMERON WINSTON MR #: [id number] : 1940 Age/Sex: 76/F Req #: [id number] Adm Physician: MARK DEWITT MD Ordered by: LYNDON ARELLANO MD Report #: [id number] Location: [facility]/SUR[facility] Room/Bed: [facility] Procedure: [id number] CT/CTA NECK Exam Date: 05/26/17 Exam Time: 1538 REPORT STATUS: Signed Examination: Cervical CT Angiogram with Contrast Clinical indication:Atrial fibrillation. Attention to the left subclavian artery Comparison studies:None Technique: Axial images were obtained from the thoracic inlet. Coronal and sagittal images reconstructed from the axial data. Intravenous contrast: 100 cc of Omnipaque 300. Computer generated maximum intensity projection images were performed of the bilateral carotid bifurcations and the aortic arch with bilateral common carotid and cervical internal carotid arteries on a separate workstation. Degree of stenosis at the carotid bulbs, if present, will be calculated using NASCET criteria where the smallest diameter at the location of stenosis is compared to the diameter of the more distal non-diseased vessel lumen. Findings: Aortic arch and major vessels: Patent. Atherosclerotic calcification. Severe narrowing of the proximal left subclavian artery due to calcific plaque. Common carotid arteries: Patent. Nonstenotic atherosclerotic calcification bilaterally which extends to the bilateral carotid bifurcations. Cervical carotid bifurcations: Right: Patent. Left :Patent. Internal carotid arteries: Right: Patent. Nonstenotic atherosclerotic calcification proximally. Left: Patent. Nonstenotic atherosclerotic calcification proximally. Vertebral arteries: Patent. IMPRESSION: 1. Severe narrowing of the proximal left subclavian artery due to calcific plaque. 2. No stenosis or occlusion of the carotid or vertebral arteries. 3. Nonstenotic atherosclerotic calcification in the aortic arch and bilateral carotid arteries. Signed by: Dr. Aaron Napier M.D. on 05/26/2017 6:54 PM Dictated By: AARON PEREZ MD 53 Transcribed By: JORGE on 05/26/171853 COPY TO: LYNDON ARELLANO MD CTA CHEST [place] [address] Patient Name: KAMERON WINSTON MR #: [id number] : 1940 Age/Sex: 76/F Req #: [id number] Adm Physician: MARK DEWITT MD Ordered by: LYNDON ARELLANO MD Report #: [id number] Location: MED/SURG3 Room/Bed: [facility] Procedure: [id number] CT/CTA CHEST Exam Date: 05/26/17 Exam Time: 1538 REPORT STATUS: Signed EXAM: CTA Chest WITH contrast. DATE: 05/26/2017 10:43 AM INDICATION: COMPARISON: Routine chest CT 05/24/2017 TECHNIQUE: CT angiogram of the chest was obtained after the administration of IV contrast. Prospective gating was performed. Images reviewed in the axial, coronal, and sagittal planes. 3D reconstructions performed on off-line workstation. IV Contrast: 100 mL Isovue-370. Total DLP: 247 mGy*cm Est. Eff. Dose DLP x 0.015 x size factor mSv (CTDIvol has been reviewed and is below limits set by [facility]). FINDINGS: Lines and Tubes: Left PICC line with tip extending to the cavoatrial junction. Lower Neck: Coarse calcification left thyroid lobe. Heart and Great Vessels: The pulmonary artery measure 32 mm. The cardiothoracic radio measures 11/21. No si gnificant pericardial effusion. No central pulmonary embolus identified. Aortic and coronary artery vascular calcifications present. Mild to moderate atherosclerotic changes are present at the origin of the right brachycephalic and left common carotid arteries. Severe vascular calcifications are present in the proximal left subclavian artery. Degree of calcification and motion artifact limits evaluation; however, stenosis is felt to be severe with occlusion and reconstitution from the left vertebral artery possible. Aortic Annulus: 20 mm. Sinus of Valsalva: 27 mm. Ascending Aorta at level of PA: 27 mm. Mid Arch: 22 mm. Proximal Descendin mm. Mid Descendin mm. Distal Descendin mm. Other: Moderate atherosclerotic changes with no dissection. Lymph Nodes: 12 x 9 mm precarinal. 12 x 9 mm left clavicular. Lungs: No pneumothorax present. There is a trace right and a small left pleural effusion, simple appearing. Linear opacities in the lung bases have the appearance of atelectasis. Areas of scarring, bronchiectasis, and distortion present in the upper lobes. On axial image 30 there is a questionable 9 mm fungus ball within area of cystic bronchiectasis in the right upper lobe. Pleural-based nodular density measuring 31 x 16 mm axial image 45. Minimal tree-in-bud opacities present in the lingula. Upper abdomen: Moderate hiatal hernia. Bones and Soft Tissues: Degenerative changes spine. IMPRESSION: 1. Severe atherosclerotic changes of the proximal 20 mm of the left subclavian artery. Artifact from calcification and motion limits evaluation. It is unclear whether this represents severe stenosis or occlusion with reconstitution of the left vertebral artery. Doppler evaluation may be of additional benefit. 2. Severe scarring, volume loss, architectural distortion, and bronchiectasis in the upper lungs statistically representing sequela of prior infectious processes, such as tuberculosis. There is a questionable mycetoma within an area of cystic bronchiectasis in the right upper lobe. Given tree-in-bud opacities in the lingula, superimposed acute infectious process possible. 3. 31 x 16 mm pleural nodularity on the left likely related to above described chronic process. Superimposed malignancy would be difficult to exclude. CT follow-up recommended. 4. Marked dilation of pulmonary arteries suggesting pulmonary hypertension. 5. Moderate to large hiatal hernia. Superimposed aspiration not excluded. 6. Small asymmetric to the left pleural effusions. Sig guillermina by: Dr. Jass Buck MD on 05/27/2017 11:01 AM Dictated By: JASS BUCK MD 110 Transcribed By: JORGE on 05/27/17 110 COPY TO: LYNDON ARELLANO MD CHEST XRAY LINE PLACEMENT [place] [address] Patient Name: KAMERON WINSTON MR #: [id number] : 1940 Age/Sex: 76/F Req #: [id number] Adm Physician: MARK DEWITT MD Ordered by: RHIANNON ARELLANO MD Report #: [id number] Location: [facility] Room/Bed: [place] [address] Procedure: [id number] DX/CHEST XRAY LINE PLACEMENT Exam Date: 05/25/17 Exam Time: 1700 REPORT STATUS: Signed PROCEDURE: A single AP view of the chest. COMPARISON: 05/24/2017 INDICATIONS: LINE PLACEMENT FINDINGS: Lines/tubes: Status post left PICC placement with tip overlying mid to inferior SVC. Lungs: The lungs are well inflated. Biapical opacification, left more than right, are again seen. Retrocardiac opacification, representing hiatal hernia. Pleura: No visible pneumothorax. Small left pleural effusion. Heart and mediastinum: The heart and the mediastinum are unremarkable. Bones: No acute bony abnormality. IMPRESSION: Status post left PICC line placement with tip overlying mid to inferior SVC. No visible pneumothorax. Hiatal hernia. Small left pleural effusion. Biapical scarring and bronchiectasis. Underlying pneumonia cannot be entirely excluded. Dictated by: Danilo Ford M.D. on 05/25/2017 at 17:54 Electronically approved by: Danilo Ford M.D. on 05/25/2017 at 17:54 Dictated By: DANILO FORD MD 53 Transcribed By: ENZO on 05/25/171753 COPY TO: RHIANNON ARELLANO MD ECHO COMPLETE (ECHOCARDIOGRAM) [place] [address] Patient Name : KAMERON WINSTON MR #: [id number] : 1940 Age/Sex: 76/F Adm Physician : MARK DEWITT MD Admit Date : 05/24/17 Location : MED/SURG3 Room/Bed : [facility] REPORT: Cardiology Report DATE OF STUDY: May 24, 2017 ECHOCARDIOGRAM M-MODE: Normal chamber sizes. Left ventricular hypertrophy. Normal contractility. Normal mitral and aortic valves. No pericardial effusion. SECTOR SCAN: Normal chamber sizes. Left ventricular hypertrophy. Normal contractility. Ejection fraction is approximately 60%. There is 1+ aortic regurgitation. Trace pulmonic and tricuspid regurgitation. Pulmonary artery systolic pressure estimated at 33 mmHg. There is evidence of diastolic dysfunction. CONCLUSIONS 1. Left ventricular hypertrophy with ejection fraction of approximately 60%. 2. Left atrial size within normal range. 3. Mild aortic regurgitation. 4. Evidence of diastolic dysfunction. 5. Trace tricuspid regurgitation without significant pulmonary hypertension with trace pulmonic regurgitation. Pulmonary artery systolic pressure estimated at 33 m mHg. Job#: [id number] cc: MARK DEWITT MD Signature Date Dictated By: LYNDON ARELLANO MD Transcribed By: SMEDS on 05/25/17 <Electronically signed by LYNDON ARELLANO MD><<Signature on File>>05/26/17 1017 COPY TO: CT CHEST W [place] [address] Patient Name: KAMERON WINSTON MR #: [id number] : 1940 Age/Sex: 76/F Req #: [id number] [facility] Physician: MARK DEWITT MD Ordered by: KORINA MARTINEZ NP Report #: [id number] Location: [facility] Room/Bed: [place] [address] Procedure: [id number] CT/CT CHEST W Exam Date: Exam Time: REPORT STATUS: Signed EXAM: CT Chest WITH contrast 05/24/2017 2:26 PM INDICATION: Pulmonary embolism, atrial fibrillation. COMPARISON: Chest x-ray on 05/24/2017. TECHNIQUE: Chest was scanned utilizing a multidetector helical scanner from the lung apex through the level of the adrenal glands without administration of IV contrast. Coronal and sagittal reformations were obtained. Routine protocol was performed. IV CONTRAST: 100 mL of Isovue-370 RADIATION DOSE: Total DLP: 397.28 mGy*cm Estimated effective dose: (DLP x 0.014 x size factor) mSv COMPLICATIONS: None. FINDINGS: LINES/ TUBES: None. LUNGS AND AIRWAYS: Extensive bilateral apical scarring and bronchiectasis with cavitary lesions including some areas in the left upper lobe peripheral pleural-based opacities and lingula. The scarring, cavitary lesions and traction bronchiectasis are most likely related to prior granulomatous disease. Some of the cavities in the right apex are filled with a nodular component as seen on series 2, image 24 suspicious for fungal infection. There is a 2.2 cm pleural-based nodule in the left upper lobe on series 2, image 37 Airways are normal. PLEURA: Small bilateral pleural effusions left greater than right. HEART AND MEDIASTINUM: The thyroid gland is normal. No mediastinal, hilar or axillary lymphadenopathy. The heart is normal in size.. There is no pericardial effusion. The pulmonary artery measures 3 cm in diameter, mildly dilated UPPER ABDOMEN: Large hiatal hernia visualized. BONES: There are degenerative changes in the thoracic spine. SOFT TISSUES: Unremarkable. IMPRESSION: 1. No evidence of pulmonary embolism. 2. Bilateral apical scarring, bronchiectasis and fibrosis most likely related to prior gr anulomatous disease. 3. Cavitary lesion filled with a soft tissue nodule may represent fungal infection in the appropriate clinical setting within the right upper lobe. 4. A 2.2 cm pleural-based nodule in the left upper lobe is suspicious for neoplasm. Signed by: Dr. Rojas Bennett M.D. on 05/24/2017 8:31 PM Dictated By: ROJAS COATES MD 30 Transcribed By: JORGE on 05/24/172030 COPY TO: KORINA MARTINEZ NP CHEST SINGLE (PORTABLE) [place] [address] Patient Name: KAMERON WINSTON MR #: [id number] : 1940 Age/Sex: 76/F Req #: [id number] Adm Physician: Ordered by: KORINA MARTINEZ MACHINE PROGRAMMER Report #: [id number] Location: ER Room/Bed: Procedure: [id number] DX/CHEST SINGLE (PORTABLE) Exam Date: 05/24/17 Exam Time: 1450 REPORT STATUS: Signed EXAMINATION: CHEST SINGLE (PORTABLE) INDICATION: Cough and congestion. COMPARISON: None available. FINDINGS: AP view TUBES and LINES: None. LUNGS: Lungs are hyperinflated. Bilateral upper lobe opacities, left more than right. PLEURA: No pleural effusion or pneumothorax. HEART AND MEDIASTINUM: The cardiomediastinal silhouette is unremarkable. Aorta is calcified and tortuous. BONES AND SOFT TISSUES: No acute osseous lesion. Soft tissues are unremarkable. UPPER ABDOMEN: No free air under the diaphragm. IMPRESSION: Bilateral upper lobe airspace opacities, left more than right, concerning for pneumonia. Emphysematous changes. Signed by: Dr. Danilo Ford MD on 05/24/2017 3:30 PM Dictated By: DANILO FORD MD 153 Transcribed By: JORGE on 05/24/17 1530 COPY TO: KORINA MARTINEZ MACHINE PROGRAMMER
[2019-04-06] MEDS ORDERED: SODIUM CHLORIDE 0.9% 1000ML 1,000 ML IV STA ×2 (13:57)
[2019-04-06] MEDS ORDERED: ALBUTEROL SULF 0.083% NEB SOLN 3 ML NEB NEB STA (13:57)
[2019-04-06] MEDS ORDERED: FAMOTIDINE 20 MG/2 ML VIAL IV ONE (13:57)
[2019-04-06] MEDS ORDERED: AZITHROMYCIN 500MG/NS 250 ML 250 ML IV ONE (13:57)
[2019-04-06] MEDS ORDERED: METHYLPREDNISOLONE SOD SUCC 125 MG/2ML VIAL IV ONE (13:57)
[2019-04-06] MEDS ORDERED: CEFTRIAXONE SOD 1 GM/NS 50 ML 50 ML IV ONE (13:57)
[2019-04-06] MEDS ORDERED: ACETAMINOPHEN 325 MG TAB PO ONE (13:57)
[2019-04-06] MEDS ORDERED: IPRATROPIUM BROMIDE 0.02% 2.5 ML NEB NEB STA (13:57)
[2019-04-06] MEDS ORDERED: CEFTRIAXONE SOD 1 GRAM/0.9% SOD CHL 50ML BAG IV SCH (14:30)
[2019-04-06] MEDS ORDERED: ACETAMINOPHEN 325 MG TAB PO PRN ×2 (14:30→16:30)
[2019-04-06] MEDS ORDERED: AZITHROMYCIN 500MG/SOD CHL 0.9% 250ML BAG IV SCH (14:30)
[2019-04-06] MEDS ORDERED: ALBUTEROL SULF 0.083% NEB SOLN 3 ML NEB NEB SCH ×2 (14:30→19:00)
[2019-04-06 14:39] LABS: BILIRUBIN,URINE SMALL (NEGATIVE); CLARITY,URINE CLEAR (CLEAR); COLOR,URINE YELLOW (YELLOW); KETONES,URINE TRACE (NEGATIVE); LEUKOCYTE ESTERASE ,URINE NEGATIVE (NEGATIVE); NITRITE,URINE NEGATIVE (NEGATIVE); PROTEIN,URINE DIPSTICK 1+ (NEGATIVE); URINE UROBILINOGEN 1 mg/dL (0.2 - 1)
[2019-04-06 15:00] LABS: AMORPHOUS SEDIMENT,URINE MODERATE (FEW); BACTERIA,URINE MANY /HPF; EPITHELIAL CELLS,URINE MODERATE /LPF
--- NOTE | 2019-04-06 15:23 | Diagnostic Imaging Report ---
Chest, 1 view, 04/06/2019. History: Shortness of breath. Comparison: 11/21/2017. Findings: The cardiomediastinal silhouette and pulmonary vasculature are within normal limits for a portable exam. There is biapical pleural thickening and upper lobe scarring/bronchiectasis. Linear scarring and tenting of the diaphragms is also noted at the lung bases. There is no new consolidation or effusion. There are no acute osseous or soft tissue abnormalities. Impression: Stable chronic findings. No acute cardiopulmonary abnormality. Signed by: Jimy Naranjo on 04/06/2019 3:20 PM
[2019-04-06] MEDS: SODIUM CHLORIDE 0.9% 1000ML 1,000 ML IV SCH ×3 (15:38→18:12)
[2019-04-06 15:40] LABS: BASOPHILS % 0.2 % (0.0-1.0); EOSINOPHILS % 0.2 % (0.0-6.0); HEMATOCRIT 39.3 % (34.2-44.1); HEMOGLOBIN 12.3 g/dL (12.0-16.0); LYMPHOCYTES % 16.2 % (18.0-39.1); MEAN CORPUSCULAR HEMOGLOBIN 27.9 pg (28-32); MEAN CORPUSCULAR HGB CONC 31.3 g/dL (31-35); MEAN CORPUSCULAR VOLUME 89.1 fL (81-99); MONOCYTES # (AUTO) 2.4 (0.2-0.8); MONOCYTES % 12.8 % (4.4-11.3); NEUTROPHILS # (AUTO) 12.8 (2.1-6.9); NEUTROPHILS % 69.2 % (38.7-80.0); PLATELET COUNT 467 x10e3/uL (140-360); RED BLOOD COUNT 4.41 x10e6/uL (3.6-5.1); RED CELL DISTRIBUTION WIDTH 17.2 % (11.7-14.4)
[2019-04-06 15:50] LABS: INR 2.23; PROTHROMBIN TIME 25.4 seconds (11.9-14.5)
[2019-04-06 15:51] LABS: PARTIAL THROMBOPLASTIN TIME 44.4 seconds (23.8-35.5)
[2019-04-06 16:02] LABS: ALBUMIN 3.4 g/dL (3.5-5.0); ALBUMIN/GLOBULIN RATIO 0.9 (0.8-2.0); ANION GAP 19.6 mmol/L (8-16); CALCIUM 9.9 mg/dL (8.4-10.2); CREATININE, SERUM 2.11 mg/dL (0.57-1.11); MAGNESIUM 1.9 MG/DL (1.3-2.1); POTASSIUM 3.6 mmol/L (3.5-5.1)
[2019-04-06 16:05] LABS: B-TYPE NATRIURETIC PEPTIDE2 208.4 pg/mL (0-100)
[2019-04-06 16:21] LABS: CREATINE KINASE MB 2.5 ng/mL (0-5.0); THYROID STIMULATING HORMONE 0.619 uIU/mL (0.350-4.940)
[2019-04-06] MEDS ORDERED: ZOLPIDEM TARTRATE 5 MG TAB PO PRN (16:30)
--- NOTE | 2019-04-06 17:05 | History and Physical ---
CHIEF COMPLAINT: Dyspnea, fatigue, and decreased appetite. HISTORY OF PRESENT ILLNESS: The patient is a 78-year-old woman. She has a history of bronchiectasis. She also has a history of rheumatoid arthritis, for which she uses methotrexate and atrial fibrillation, for which she is on Eliquis and amiodarone. Over the past 7-10 days, she notes increased fatigue and dyspnea. She also reports nonproductive cough. She does not complain of any fevers. She has decreased appetite. PAST MEDICAL HISTORY: 1. Rheumatoid arthritis, requiring treatment with methotrexate. 2. Remote history of tuberculosis, treated with a full course of antimycobacterial medications. The patient had repeat bronchoscopy about 18 months ago that showed no recurrent mycobacterial infection. 3. Atrial fibrillation. 4. Chronic obstructive pulmonary disease. PAST SURGICAL HISTORY: Noncontributory. SOCIAL HISTORY: The patient is not a smoker. She was exposed to asbestos through her , who worked as a junior legal secretary. ALLERGIES: THE PATIENT IS ALLERGIC TO SULFA MEDICATIONS. FAMILY HISTORY: Family history is noncontributory. REVIEW OF SYSTEMS: She has no fever. She has no headache. She has no neck pain. She does have some dyspnea and cough productive of small amounts of phlegm. She has no chest pain. She has no abdominal pain. She has no nausea or vomiting. She does have some leg edema. PHYSICAL EXAMINATION: VITAL SIGNS: The patient is afebrile. The blood pressure is 149/66 and the pulse is 89. Respiratory rate is 18 and saturation is 99%. HEENT: Shows no facial swelling or erythema. CARDIAC: Reveals a regular rate and rhythm with a normal S1, S2. There are no murmurs or rubs. LUNGS: Auscultation of lungs reveals a few wheezes bilaterally. There is a prolonged expiratory phase. ABDOMEN: Soft, nontender. There is no rebound or guarding. EXTREMITIES: Show no leg edema or calf tenderness. There is no cyanosis or clubbing. SKIN: Shows no rashes. LABORATORY DATA: Creatinine is 2.11 and the BUN is 23. The sodium is 135. The lactic acid is 2.8. AST is 57 and the ALT is 56. White blood cell count is 18.4 and hemoglobin is 12.3. The platelet count is 467. RADIOGRAPHIC DATA: Chest x-ray shows biapical pleural thickening and scarring in the upper lobes. This is unchanged from prior films. IMPRESSION: 1. Bronchiectasis with acute exacerbation and sepsis, present on admission. 2. Acute kidney injury. 3. Atrial fibrillation. 4. Rheumatoid arthritis, requiring treatment with methotrexate. PLAN: 1. Intravenous fluids at 30 mL/kg. 2. Panculture. The patient to begin antibiotics. 3. Repeat creatinine tomorrow morning. 4. Continue to monitor electrolytes. 5. Monitor cardiac status. 6. Solu-Medrol and bronchodilators. Mark Dewitt MD [facility]/MODL /[id number]
[2019-04-06] MEDS: FAMOTIDINE 20 MG/2 ML VIAL IV SCH (17:47)
[2019-04-06] MEDS ORDERED: IPRATROPIUM BROMIDE 0.02% 2.5 ML NEB NEB SCH (19:00)
[2019-04-06] MEDS ORDERED: ALBUTEROL SULF 0.083% NEB SOLN 3 ML NEB NEB PRN (19:00)
[2019-04-06] MEDS ORDERED: IPRATROPIUM BROMIDE 0.02% 2.5 ML NEB NEB PRN (19:00)
[2019-04-06] MEDS: SIMVASTATIN 20 MG TAB PO SCH (21:00)
[2019-04-06] MEDS: METHYLPREDNISOLONE SOD SUCC 40 MG/ML VIAL 1ML IV SCH (21:00)
[2019-04-06] MEDS ORDERED: NON-FORMULARY MEDICATION (Lovastatin 20 MG) PO SCH (21:00)
[2019-04-06] MEDS ORDERED: METHYLPREDNISOLONE SOD SUCC 40 MG/ML VIAL 1ML IV SCH (22:00)
--- NOTE | 2019-04-07 00:32 | NUR ---
REPORT GIVEN TO RITA CHISHOLM
[2019-04-07] MEDS: SODIUM CHLORIDE 0.9% 1000ML 1,000 ML IV SCH ×4 (00:41→19:00)
[2019-04-07 01:08] LABS: CREATINE KINASE MB 3.8 ng/mL (0-5.0)
--- NOTE | 2019-04-07 04:00 | NUR ---
pt offered hospital bed. pt refused, states that wants to remain on stretcher.
[2019-04-07 05:57] LABS: BASOPHILS % 0.2 % (0.0-1.0); HEMATOCRIT 30.5 % (34.2-44.1); HEMOGLOBIN 9.7 g/dL (12.0-16.0); LYMPHOCYTES # (AUTO) 0.5 (1.0-3.2); LYMPHOCYTES % 4.4 % (18.0-39.1); MEAN CORPUSCULAR HEMOGLOBIN 28.4 pg (28-32); MEAN CORPUSCULAR HGB CONC 31.8 g/dL (31-35); MEAN CORPUSCULAR VOLUME 89.4 fL (81-99); MONOCYTES # (AUTO) 0.2 (0.2-0.8); NEUTROPHILS # (AUTO) 10.3 (2.1-6.9); NEUTROPHILS % 91.4 % (38.7-80.0); PLATELET COUNT 349 x10e3/uL (140-360); RED BLOOD COUNT 3.41 x10e6/uL (3.6-5.1); RED CELL DISTRIBUTION WIDTH 17.2 % (11.7-14.4)
[2019-04-07 06:21] LABS: ALBUMIN 2.5 g/dL (3.5-5.0); ALBUMIN/GLOBULIN RATIO 0.9 (0.8-2.0); CALCIUM 8.2 mg/dL (8.4-10.2); CREATININE, SERUM 1.42 mg/dL (0.57-1.11)
--- NOTE | 2019-04-07 06:50 | NUR ---
RECEIVED REPORT FROM OFF GOING NURSE. PATIENT IN ROOM IN BED. AWAKE AND ALERT. NO S/S OF ACUTE DISTRESS. NO C/O PAIN AT THIS TIME. FAMILY MEMBER AT BEDSIDE. PENDING ROOM ASSIGNMENT FOR ADMISSION
[2019-04-07 06:59] LABS: CREATINE KINASE MB 4.3 ng/mL (0-5.0)
--- NOTE | 2019-04-07 08:08 | Diagnostic Imaging Report ---
Chest, portable AP view History: Pneumonia Comparison: 04/06/2019 IMPRESSION: The heart is within normal limits of size. There is biapical pleural-parenchymal scarring with associated bronchiectasis. There is no focal consolidation, sizable pleural effusion, or pneumothorax. No acute osseous abnormalities. No significant interval changes. Signed by: Eris Posey MD on 04/07/2019 8:04 AM
[2019-04-07] MEDS ORDERED: METOPROLOL SUCC50 MG PO (08:36)
[2019-04-07] MEDS: FAMOTIDINE 20 MG/2 ML VIAL IV SCH ×2 (08:52→16:33)
[2019-04-07] MEDS: FOLIC ACID 1 MG TAB PO SCH (08:53)
[2019-04-07] MEDS: METHYLPREDNISOLONE SOD SUCC 40 MG/ML VIAL 1ML IV SCH ×2 (08:53→21:01)
[2019-04-07] MEDS: CHOLECALCIFEROL 1,000 UNIT TAB PO SCH (08:53)
[2019-04-07] MEDS ORDERED: NON-FORMULARY MEDICATION (Cholecalciferol (Vitamin D3) (Vitamin D3) 1 TAB) PO SCH (09:00)
[2019-04-07] MEDS: AMIODARONE HCL 200 MG TAB PO SCH (09:08)
[2019-04-07] MEDS: RIVAROXABAN 20 MG TABLET PO SCH (09:08)
[2019-04-07] MEDS: CEFTRIAXONE SOD 1 GM/NS 50 ML 50 ML IV SCH (13:00)
--- NOTE | 2019-04-07 13:00 | NUR ---
RCD PT FROM ER BY BED PT IS ALERT AND ORIENTED VITALS CHECKED PT RESTING ON BED ADMISSION ASSESSMENT AND HISTORY DONE IV PATENT ANTIBIOTICS STARTED FAMILY AT BED SIDE INSTRUCTED THE PT AND FAMILY REGARDING HOSPITAL POLICY AND ROUTINE BED LOW AND LOCKED CALL LIGHT IN REACH
[2019-04-07 13:23] VITALS: BP 157/68
[2019-04-07] MEDS: AZITHROMYCIN 500MG/NS 250 ML 250 ML IV SCH (14:00)
[2019-04-07] MEDS ORDERED: AZITHROMYCIN 500MG/NS 250 ML 250 ML IV SCH (14:00)
[2019-04-07 14:02] VITALS: BP 157/68
[2019-04-07 14:12] VITALS: BP 157/68
[2019-04-07] MEDS ORDERED: BENZONATATE 100 MG CAP PO PRN (14:30)
[2019-04-07 16:20] VITALS: BP 155/67
--- NOTE | 2019-04-07 17:46 | Progress Note ---
DATE: SUBJECTIVE: The patient received some fluids and antibiotics yesterday. She reports some improvement, but still feels weak. She still has some cough. PHYSICAL EXAMINATION: VITAL SIGNS: The patient is afebrile. The blood pressure is 157/68 and the saturation is 97%. Respiratory rate is 18. HEENT: Shows no facial swelling or erythema. CARDIAC: Reveals a regular rate and rhythm with normal S1, S2. LUNGS: Auscultation of lungs shows prolonged expiratory phase bilaterally. There is some wheezing. ABDOMEN: Soft, nontender. There is no rebound or guarding. EXTREMITIES: There is 1+ edema. LABORATORY DATA: White blood cell count is improved to 11.2 and hemoglobin is 9.7. The platelet count is 349. The BUN to creatinine ratio is 21 to 1.42, and the other electrolytes are within normal limits. IMPRESSION: 1. Bronchiectasis with acute exacerbation and sepsis, present on admission. 2. Acute kidney injury. 3. Rheumatoid arthritis. 4. Atrial fibrillation. 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 PLAN: 1. Continue IV fluids. 2. Monitor electrolytes and creatinine. 3. Continue to monitor blood counts. 4. Continue Solu-Medrol and bronchodilators. Mark Dewitt MD [facility]/STEVENL /[id number]
--- NOTE | 2019-04-07 19:09 | NUR ---
PT RESTING ON BED BED SIDE REPORT GIVEN TO ONCOMING NURSE
[2019-04-07 20:00] VITALS: BP 164/72
[2019-04-07] MEDS: SIMVASTATIN 20 MG TAB PO SCH (21:01)
[2019-04-07] MEDS: CLONIDINE HCL 0.1 MG TAB PO PRN (21:21)
[2019-04-07 21:39] VITALS: BP 164/72
[2019-04-08] VITALS (8 sets, daily range): BP systolic 153–186; BP diastolic 65–79
--- NOTE | 2019-04-08 01:22 | Consultation ---
DATE OF CONSULTATION: Cardiology Consultation REASON FOR CONSULTATION: History of atrial fibrillation. HISTORY OF PRESENT ILLNESS: This is a 78-year-old woman with a history of paroxysmal atrial fibrillation, chronic obstructive pulmonary disease, rheumatoid arthritis, who presented to the emergency department with progressively worsening shortness of breath, [id number] in intensity, continued to worsen causing significant fatigue and inability to tolerate oral intake. She is brought here and was being treated for bronchitis and acute COPD exacerbation. She denies any cardiac symptoms. She denies any chest pain or palpitations. REVIEW OF SYSTEMS: A 12-point review of system was conducted and is negative except as stated above in the HPI. PAST MEDICAL HISTORY: As stated above in the HPI. PAST SURGICAL HISTORY: None recent. PAST FAMILY HISTORY: Noncontributory. SOCIAL HISTORY: No current illicit drug, alcohol, or tobacco use. ALLERGIES: SULFA. MEDICATIONS: See reconciliation form. PHYSICAL EXAMINATION: VITAL SIGNS: Temperature is 97.5, heart rate is 88, respirations are 18, blood pressure is 155/67, and oxygen saturation 97% on room air. GENERAL: A well-appearing elderly woman, lying comfortably in bed, in no apparent distress. Alert and oriented x3. HEENT: Head is normocephalic, atraumatic. Eyes; extraocular muscles are intact. Conjunctivae are clear. NECK: No JVD. No bruits. CARDIOVASCULAR: Regular rate and rhythm. LUNGS: Clear to auscultation. ABDOMEN: Soft, nontender, nondistended. EXTREMITIES: No clubbing, cyanosis or edema. VASCULAR: 2+ pulses. LABORATORY DATA: Reviewed. Telemetry monitoring revealed normal sinus rhythm. IMPRESSION: 1. Paroxysmal atrial fibrillation. 2. Bronchitis. 3. Chronic obstructive pulmonary disease exacerbation. RECOMMENDATIONS: Continue current sepsis and infectious treatment per primary team. Continue Xarelto and amiodarone for rate and rhythm control. We will continue to follow along with you. DO ALAN Rose/MODL /[id number]
[2019-04-08] MEDS: SODIUM CHLORIDE 0.9% 1000ML 1,000 ML IV SCH (05:49)
[2019-04-08 06:00] LABS: BASOPHILS # (AUTO) 0.1 (0.0-0.1); BASOPHILS % 0.3 % (0.0-1.0); HEMATOCRIT 31.5 % (34.2-44.1); LYMPHOCYTES # (AUTO) 0.6 (1.0-3.2); MEAN CORPUSCULAR HEMOGLOBIN 28.5 pg (28-32); MEAN CORPUSCULAR HGB CONC 31.7 g/dL (31-35); MEAN CORPUSCULAR VOLUME 89.7 fL (81-99); MONOCYTES # (AUTO) 0.6 (0.2-0.8); MONOCYTES % 2.9 % (4.4-11.3); NEUTROPHILS % 90.1 % (38.7-80.0); PLATELET COUNT 417 x10e3/uL (140-360); RED BLOOD COUNT 3.51 x10e6/uL (3.6-5.1); RED CELL DISTRIBUTION WIDTH 17.4 % (11.7-14.4)
[2019-04-08 06:17] LABS: ALBUMIN 2.5 g/dL (3.5-5.0); ANION GAP 11.7 mmol/L (8-16); CALCIUM 8.4 mg/dL (8.4-10.2); CREATININE, SERUM 1.07 mg/dL (0.57-1.11); POTASSIUM 3.7 mmol/L (3.5-5.1)
--- NOTE | 2019-04-08 07:10 | NUR ---
Report from the off-going nurse and the pt. c/o of blood around the iv site. I assured the pt. that I would take care of the problem for her.
[2019-04-08] MEDS: FOLIC ACID 1 MG TAB PO SCH (09:03)
[2019-04-08] MEDS: CHOLECALCIFEROL 1,000 UNIT TAB PO SCH (09:03)
[2019-04-08] MEDS: FAMOTIDINE 20 MG/2 ML VIAL IV SCH ×2 (09:03→17:34)
[2019-04-08] MEDS: AMIODARONE HCL 200 MG TAB PO SCH (09:03)
[2019-04-08] MEDS: RIVAROXABAN 20 MG TABLET PO SCH (09:03)
[2019-04-08] MEDS: METHYLPREDNISOLONE SOD SUCC 40 MG/ML VIAL 1ML IV SCH ×2 (09:03→21:04)
[2019-04-08] MEDS: CEFTRIAXONE SOD 1 GM/NS 50 ML 50 ML IV SCH (13:00)
[2019-04-08] MEDS: VALSARTAN 80 MG TAB PO SCH (14:00)
[2019-04-08] MEDS: AZITHROMYCIN 500MG/NS 250 ML 250 ML IV SCH (14:00)
--- NOTE | 2019-04-08 14:04 | NUR ---
EDUCATED ABOUT IMM, SIGNED, FILED IN CHART, WITH COPY LEFT WITH FAMILY AT BEDSIDE.
--- NOTE | 2019-04-08 14:31 | Diagnostic Imaging Report ---
EXAMINATION: CHEST 2 VIEWS INDICATION:Right upper lobe changes. COMPARISON: Chest radiograph 04/07/[address] Chest 08/25/2018. FINDINGS: TUBES and LINES: None. LUNGS/PLEURA: The lungs are mildly hyperinflated. Again noted is bilateral upper lobe pleural parenchymal opacity, left greater than right, and bronchiectasis. No new consolidation. Trace bilateral pleural effusions with patchy bibasilar opacities. No evidence of pulmonary edema. HEART AND MEDIASTINUM: The cardiomediastinal silhouette is unremarkable. There are atherosclerotic calcifications within the aorta. BONES AND SOFT TISSUES: No acute osseous lesion. Soft tissues are unremarkable. UPPER ABDOMEN: No free air under the diaphragm. IMPRESSION: Findings suggestive of prior granulomatous disease in the bilateral upper lobes. Trace bilateral pleural effusions with bibasilar opacities, likely atelectasis. Superimposed infection is possible in the appropriate clinical setting. Signed by: Dr. Sylvester Orona MD on 04/08/2019 2:28 PM
--- NOTE | 2019-04-08 15:18 | Progress Note ---
DATE: SUBJECTIVE: The patient has less congestion. She is walking. Her creatinine is improved. PHYSICAL EXAMINATION: VITAL SIGNS: The blood pressure is 186/79, saturation is 96%. HEENT: Shows no facial swelling or erythema. CARDIAC: Reveals regular rate and rhythm with normal S1 and S2. LUNGS: Auscultation of lungs reveals a few wheezes bilaterally. ABDOMEN: Soft, nontender. There is no rebound or guarding. EXTREMITIES: Show no leg edema or calf tenderness. There is no cyanosis or clubbing. SKIN: Shows no rashes. LABORATORY DATA: BUN to creatinine ratio is 24 to 1.07. The other electrolytes within normal limits. The white blood cell count is 21 and hemoglobin is 10. The platelet count is 417. IMPRESSION: 1. Bronchiectasis with acute exacerbation and sepsis, present on admission. 2. Acute kidney injury. 3. Rheumatoid arthritis. 4. Atrial fibrillation. PLAN: 1. Repeat chest x-ray. 2. Continue antibiotics. 3. Taper steroids. 4. Bronchodilators. 5. Adjust antihypertensive regimen. Mark Dewitt MD [facility]/MODL /[id number]
--- NOTE | 2019-04-08 16:58 | NUR ---
Nutrition Intervention Note RD Recommendation(s) for Physician: -Ensure Enlive BID for added nutrition -Recommend regular diet Plan of Care: RD following, monitoring for tolerance and adequacy Nutrition reason for involvement: consult for nutrition assessment RD Assessment (04/08/19) Pt is a 78 year old female admitted with dyspnea and pneumonia. Spoke to family member and pt. Pt stated her appetite is getting better and consuming 50% of meals during admission. Per documentation, pt consumed 50% of breakfast today and 75% of dinner yesterday. Prior to admission, family member reported pt eats small meals and eats like a bird. Medical staff had ordered pt Ensure and pt has been drinking them. Pt reports gradual wt loss over the past couple of years and used to weigh 140 lbs > 1 year ago. Pt currently has a wt of 123 lbs in chart. No N/V, but pt reports some diarrhea. No chewing/swallowing issues. Principal Problems/Diagnoses: dyspnea and pneumonia. PMH: afib, COPD, rheumatoid arthritis, remote h/o TB GI: soft, nontender abdomen, BM not recorded Skin: no pressure ulcers Labs: (04/08/19) Glu 129 Meds: (04/08/19) valsartan, azithromycin, vitamin D, folic acid, pepcid, Ht: 61 inches Wt: 123 lbs BMI: 23.3 kg/m2 IBW: 105 lbs Malnutrition Evaluation (04/08/19) The patient does not meet criteria for a specified degree of malnutrition at this time. Will re-evaluate at follow-up as appropriate. Nutrition Prescription (Diet Order): Cardiac diet Estimated Nutritional Needs: [id number] calories/day (25-35 kcal/kg CBW) 56-84 g protein/day (1.0-1.5 g pro/kg CBW) Diet Adequacy: Pt reports eating 50% of her meals Tolerance: Tolerating PO Diet Education Needs Assessment: Diet education not indicated Nutrition Care Level: low Nutrition Diagnosis: Unintended weight loss related to predicted h/o inadequate energy intake as evidenced by 12% wt loss in > 1 year. Goal: Patient will meet 75-100% of estimated needs by follow up Progress: N/A Interventions: -General healthful diet, Commercial beverage, Recommended Modifications, Monitoring/Evaluation: -Total energy intake, Total protein intake, Liquid supplement, Weight change Signed: Shawna Carney, RD, LD
--- NOTE | 2019-04-08 20:04 | Progress Note ---
DATE: Cardiology Progress Note SUBJECTIVE: The patient is feeling better. Denies any chest pain. Reports improvement in her shortness of breath. OBJECTIVE: VITAL SIGNS: Temperature is 96.7, heart rate 89, respirations are 16, blood pressure is 153/65, oxygen saturation 98% on room air. GENERAL: Well appearing, in no apparent distress. CARDIOVASCULAR: Regular rate and rhythm. LUNGS: Scattered expiratory wheezes. ABDOMEN: Soft, nontender, nondistended. EXTREMITIES: No edema. CARDIOVASCULAR MEDICATIONS: Reviewed, include valsartan 80 mg daily, Xarelto, amiodarone, simvastatin. LABORATORY DATA: Reviewed. White blood cell count is 21, creatinine is 1.07. IMPRESSION: 1. Bronchitis. 2. Acute on chronic kidney disease, improved. 3. Rheumatoid arthritis. 4. Hypertension. 5. Hyperlipidemia. 6. Paroxysmal atrial fibrillation. RECOMMENDATIONS: The patient is stable from a cardiovascular standpoint. Her antihypertensives have been restarted. Continue Xarelto and amiodarone. The patient is stable for discharge from a cardiovascular standpoint. DO ALAN Rose/MODL /[id number]
[2019-04-08] MEDS: SIMVASTATIN 20 MG TAB PO SCH (21:04)
[2019-04-09] VITALS (7 sets, daily range): BP systolic 155–178; BP diastolic 64–73
[2019-04-09] MEDS: CLONIDINE HCL 0.1 MG TAB PO PRN (00:45)
[2019-04-09 05:42] LABS: BASOPHILS # (AUTO) 0.1 (0.0-0.1); BASOPHILS % 0.3 % (0.0-1.0); HEMATOCRIT 31.1 % (34.2-44.1); HEMOGLOBIN 9.7 g/dL (12.0-16.0); LYMPHOCYTES # (AUTO) 0.4 (1.0-3.2); LYMPHOCYTES % 2.5 % (18.0-39.1); MEAN CORPUSCULAR HEMOGLOBIN 27.8 pg (28-32); MEAN CORPUSCULAR HGB CONC 31.2 g/dL (31-35); MEAN CORPUSCULAR VOLUME 89.1 fL (81-99); MONOCYTES # (AUTO) 0.6 (0.2-0.8); MONOCYTES % 3.4 % (4.4-11.3); NEUTROPHILS # (AUTO) 15.2 (2.1-6.9); PLATELET COUNT 428 x10e3/uL (140-360); RED BLOOD COUNT 3.49 x10e6/uL (3.6-5.1); RED CELL DISTRIBUTION WIDTH 17.6 % (11.7-14.4)
[2019-04-09 06:09] LABS: ALBUMIN 2.4 g/dL (3.5-5.0); ALBUMIN/GLOBULIN RATIO 1.1 (0.8-2.0); ANION GAP 11.7 mmol/L (8-16); CALCIUM 8.3 mg/dL (8.4-10.2); CREATININE, SERUM 1.16 mg/dL (0.57-1.11); POTASSIUM 3.7 mmol/L (3.5-5.1)
[2019-04-09 07:03] LABS: LYMPHOCYTES % (MANUAL) 2 % (19-48); METAMYELOCYTES % (MANUAL) 1 % (0-0); MONOCYTES % (MANUAL) 3 % (3.4-9.0); NEUTROPHILS % (MANUAL) 94 % (40-74); PLATELET ESTIMATE SLIGHTLY INCREASED; PLATELET MORPHOLOGY COMMENT NORMAL; RBC MORPHOLOGY COMMENT NORMAL
[2019-04-09] MEDS: CHOLECALCIFEROL 1,000 UNIT TAB PO SCH (09:26)
[2019-04-09] MEDS: VALSARTAN 80 MG TAB PO SCH (09:26)
[2019-04-09] MEDS: FOLIC ACID 1 MG TAB PO SCH (09:26)
[2019-04-09] MEDS: RIVAROXABAN 20 MG TABLET PO SCH (09:26)
[2019-04-09] MEDS: AMIODARONE HCL 200 MG TAB PO SCH (09:44)
[2019-04-09] MEDS: METHYLPREDNISOLONE SOD SUCC 40 MG/ML VIAL 1ML IV SCH ×2 (09:44→20:42)
[2019-04-09] MEDS: FAMOTIDINE 20 MG/2 ML VIAL IV SCH ×2 (09:44→16:59)
[2019-04-09] MEDS: CEFTRIAXONE SOD 1 GM/NS 50 ML 50 ML IV SCH (13:58)
[2019-04-09] MEDS: AZITHROMYCIN 500MG/NS 250 ML 250 ML IV SCH (13:59)
--- NOTE | 2019-04-09 17:02 | Progress Note ---
DATE: SUBJECTIVE: The patient has less congestion, but she still has some cough and wheezing. She does not complain of fevers. She still has some fatigue. PHYSICAL EXAMINATION: VITAL SIGNS: The blood pressure is 160/67 and the saturation is 98%. The pulse is 82. Respiratory rate is 16. HEENT: Shows no facial swelling or erythema. CARDIAC: Reveals regular rate and rhythm with a normal S1, S2. LUNGS: Auscultation of lungs reveals a prolonged expiratory phase bilaterally. There is wheezing. ABDOMEN: Soft, nontender. There is no rebound or guarding. EXTREMITIES: Show no leg edema or calf tenderness. There is no cyanosis or clubbing. SKIN: Shows no rashes. NEUROLOGICAL: Shows no focal abnormalities. LABORATORY DATA: White blood cell count is 16.8 and hemoglobin is 9.7. The platelet count is 428. There are 94% neutrophils and 1% metamyelocytes. BUN to creatinine ratio is 30 to 1.16, bicarbonate is 21. RADIOGRAPHIC DATA: Chest x-ray shows continued opacities in the upper lung sandy. IMPRESSION: 1. Bronchiectasis with acute exacerbation and sepsis, present on admission. 2. Acute kidney injury. 3. Rheumatoid arthritis. 4. Atrial fibrillation. 5. 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 PLAN: 1. Infectious Disease consultation. 2. Continue Solu-Medrol and antibiotics. 3. Bronchodilators. 4. Out of bed as tolerated. Mark Dewitt MD [facility]/STEVENL /[id number]
[2019-04-09] MEDS: SIMVASTATIN 20 MG TAB PO SCH (20:42)
[2019-04-10] VITALS (9 sets, daily range): BP systolic 152–180; BP diastolic 66–74
[2019-04-10] MEDS: CLONIDINE HCL 0.1 MG TAB PO PRN (00:54)
[2019-04-10 05:38] LABS: BASOPHILS # (AUTO) 0.1 (0.0-0.1); BASOPHILS % 0.7 % (0.0-1.0); HEMATOCRIT 34.2 % (34.2-44.1); HEMOGLOBIN 9.7 g/dL (12.0-16.0); LYMPHOCYTES # (AUTO) 0.4 (1.0-3.2); MEAN CORPUSCULAR HEMOGLOBIN 27.5 pg (28-32); MEAN CORPUSCULAR HGB CONC 28.4 g/dL (31-35); MEAN CORPUSCULAR VOLUME 96.9 fL (81-99); MONOCYTES # (AUTO) 0.5 (0.2-0.8); MONOCYTES % 3.3 % (4.4-11.3); NEUTROPHILS # (AUTO) 12.2 (2.1-6.9); NEUTROPHILS % 87.3 % (38.7-80.0); PLATELET COUNT 349 x10e3/uL (140-360); RED BLOOD COUNT 3.53 x10e6/uL (3.6-5.1); RED CELL DISTRIBUTION WIDTH 18.1 % (11.7-14.4)
[2019-04-10 06:17] LABS: ALBUMIN 2.3 g/dL (3.5-5.0); ALBUMIN/GLOBULIN RATIO 1.2 (0.8-2.0); CALCIUM 8.2 mg/dL (8.4-10.2); CREATININE, SERUM 1.13 mg/dL (0.57-1.11)
[2019-04-10] MEDS: AMIODARONE HCL 200 MG TAB PO SCH (08:35)
[2019-04-10] MEDS: VALSARTAN 80 MG TAB PO SCH (08:35)
[2019-04-10] MEDS: FAMOTIDINE 20 MG/2 ML VIAL IV SCH ×2 (08:35→17:04)
[2019-04-10] MEDS: METHYLPREDNISOLONE SOD SUCC 40 MG/ML VIAL 1ML IV SCH ×2 (08:35→20:54)
[2019-04-10] MEDS: RIVAROXABAN 20 MG TABLET PO SCH (08:35)
[2019-04-10] MEDS: FOLIC ACID 1 MG TAB PO SCH (08:35)
[2019-04-10] MEDS: CHOLECALCIFEROL 1,000 UNIT TAB PO SCH (08:35)
--- NOTE | 2019-04-10 12:58 | Progress Note ---
DATE: Pulmonary Progress Note SUBJECTIVE: The patient is afebrile. She has less wheezing. She still complains of weakness. PHYSICAL EXAMINATION: VITAL SIGNS: Stable. CARDIAC: Reveals a regular rate and rhythm with normal S1, S2. LUNGS: Auscultation of lungs reveals a few expiratory wheezes bilaterally. CARDIAC: Reveals regular rate and rhythm with normal S1, S2. ABDOMEN: Soft, nontender. There is no rebound or guarding. EXTREMITIES: There is no leg edema or calf tenderness. IMPRESSION: 1. Bronchiectasis with acute exacerbation and sepsis, present on admission. 2. Acute kidney injury. 3. Rheumatoid arthritis. 4. Atrial fibrillation. 5. Remote history of Aspergillus colonizing the sputum. PLAN: 1. Continue to taper Solu-Medrol. 2. Continue antibiotics. 3. Out of bed as tolerated. 4. Infectious Disease consultation. The patient saw Dr. Valentin as an outpatient regarding the Aspergillus in her sputum. Mark Dewitt MD [facility]/FELIPE /[id number]
[2019-04-10] MEDS: AZITHROMYCIN 500MG/NS 250 ML 250 ML IV SCH (13:41)
[2019-04-10] MEDS: CEFTRIAXONE SOD 1 GM/NS 50 ML 50 ML IV SCH (13:41)
--- NOTE | 2019-04-10 13:54 | Progress Note ---
DATE: Cardiology Progress Note SUBJECTIVE: The patient is feeling better. Denies any chest pain or shortness of breath. Reports a cough. OBJECTIVE: VITAL SIGNS: Temperature is 97.4, heart rate is 75, respirations are 18, blood pressure is 156/67, oxygen saturation is 95% on room air. GENERAL: Well appearing, no apparent distress. CARDIOVASCULAR: Regular rate and rhythm. LUNGS: Clear to auscultation. ABDOMEN: Soft, nontender, nondistended. EXTREMITIES: No clubbing, cyanosis, or edema. CARDIOVASCULAR MEDICATIONS: Reviewed, include valsartan 80 mg daily, Xarelto 20 mg daily, amiodarone 20 mg daily, simvastatin 10 mg daily. IMPRESSION: 1. Bronchitis. 2. Acute on chronic kidney disease, improved. 3. Rheumatoid arthritis. 4. Hypertension. 5. Hyperlipidemia. 6. Paroxysmal atrial fibrillation. RECOMMENDATIONS: Continue current cardiovascular medications. Up titrate valsartan as needed. Continue Xarelto and amiodarone for her atrial fibrillation. The patient may be discharged from a cardiovascular standpoint with outpatient followup. DO ALAN Rose/MODL /[id number]
[2019-04-10] MEDS: SIMVASTATIN 20 MG TAB PO SCH (20:54)
[2019-04-11] VITALS: BP 184/74
[2019-04-11] MEDS: CLONIDINE HCL 0.1 MG TAB PO PRN ×2 (00:35→06:04)
--- NOTE | 2019-04-11 02:16 | Consultation ---
DATE OF CONSULTATION: REASON FOR CONSULTATION: Pneumonia. HISTORY OF PRESENT ILLNESS: This patient who is a very pleasant 78-year-old female, comes on April 06 with shortness of breath and cough. The patient who does have underlying history of bronchiectasis, rheumatoid arthritis, atrial fibrillation, on methotrexate and Eliquis, amiodarone, comes in with one week of shortness of breath and cough. The patient was admitted on antibiotic. She is currently feeling slightly better. Her family at the bedside. The patient who does have past medical history of rheumatoid arthritis, tuberculosis, treated, atrial fibrillation, COPD, bronchiectasis. PAST SURGICAL HISTORY: Negative. ALLERGIES: NKA. SOCIAL HISTORY: There is no smoking, drug abuse, or alcohol abuse. REVIEW OF SYSTEMS: CONSTITUTIONAL: At present time, her breathing is better. : Negative. GI: Negative. SKIN: Otherwise negative. The patient was admitted four days ago. The patient has been on Pepcid, azithromycin and Rocephin in addition to her methylprednisolone and vitamin D. PHYSICAL EXAMINATION: GENERAL: She is currently alert, oriented. VITAL SIGNS: Stable, currently afebrile. HEENT: She is not icteric. NECK: Supple. CHEST: Few crackles. COR: S1-S2. No murmurs. ABDOMEN: Soft. Bowel sounds present. No tenderness. EXTREMITIES: No edema. SKIN: No rash. IMPRESSION: 1. Community-acquired pneumonia, clinically doing better from bronchiectasis with acute exacerbation. 2. History of rheumatoid arthritis. 3. 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 Clinically is better. We will give five days of azithromycin and eight days of antibiotic, she is currently on Rocephin, can change to Augmentin. We will follow. We will discuss with Critical Care. MD DENIS Castillo/FELIPE /[id number]
[2019-04-11 04:00] VITALS: BP 186/76
[2019-04-11 05:25] LABS: BASOPHILS # (AUTO) 0.1 (0.0-0.1); BASOPHILS % 0.3 % (0.0-1.0); HEMATOCRIT 31.7 % (34.2-44.1); LYMPHOCYTES # (AUTO) 0.5 (1.0-3.2); LYMPHOCYTES % 3.1 % (18.0-39.1); MEAN CORPUSCULAR HEMOGLOBIN 27.7 pg (28-32); MEAN CORPUSCULAR HGB CONC 31.5 g/dL (31-35); MEAN CORPUSCULAR VOLUME 87.8 fL (81-99); MONOCYTES # (AUTO) 0.5 (0.2-0.8); MONOCYTES % 3.4 % (4.4-11.3); NEUTROPHILS % 86.3 % (38.7-80.0); PLATELET COUNT 387 x10e3/uL (140-360); RED BLOOD COUNT 3.61 x10e6/uL (3.6-5.1); RED CELL DISTRIBUTION WIDTH 17.5 % (11.7-14.4)
[2019-04-11 05:54] LABS: ALBUMIN 2.4 g/dL (3.5-5.0); ALBUMIN/GLOBULIN RATIO 1.3 (0.8-2.0); ANION GAP 9.8 mmol/L (8-16); CALCIUM 8.1 mg/dL (8.4-10.2); CREATININE, SERUM 1.08 mg/dL (0.57-1.11); POTASSIUM 3.8 mmol/L (3.5-5.1)
--- NOTE | 2019-04-11 07:05 | NUR ---
Received patient lying in bed with eyes open. Family members at bedside. Respiration even and unlabored without SOB. Call light in reach.
[2019-04-11] MEDS: METHYLPREDNISOLONE SOD SUCC 40 MG/ML VIAL 1ML IV SCH (08:32)
[2019-04-11] MEDS: FAMOTIDINE 20 MG/2 ML VIAL IV SCH (08:32)
[2019-04-11] MEDS: AMIODARONE HCL 200 MG TAB PO SCH (08:33)
[2019-04-11] MEDS: FOLIC ACID 1 MG TAB PO SCH (08:34)
[2019-04-11] MEDS: VALSARTAN 80 MG TAB PO SCH (08:34)
[2019-04-11] MEDS: CHOLECALCIFEROL 1,000 UNIT TAB PO SCH (08:34)
[2019-04-11] MEDS: RIVAROXABAN 20 MG TABLET PO SCH (08:35)
[2019-04-11] MEDS ORDERED: LOSARTAN POTASS50 MG PO (08:36)
[2019-04-11 09:11] VITALS: BP 131/62
[2019-04-11 09:15] VITALS: BP 151/72
[2019-04-11 11:15] VITALS: BP 151/72
[2019-04-11 12:13] VITALS: BP 140/65
--- NOTE | 2019-04-11 12:31 | NUR ---
Pt and daughter at bedside is asking about provider services. Provided them with [facility] information. Pt's daughter states she will call them for additional information on provider services. IMM letter delivered and explained. They verbalized understanding. Pt states that Dr. Dewitt told her he was planning on possibly discharging her today. Signed copy placed in chart. Copy to pt's daughter. Left CM's business card with pt's daughter for any additional questions/concerns.
--- NOTE | 2019-04-11 14:45 | NUR ---
PIV to right AC discontinued. Catheter tip intact. No bleeding noted.
--- NOTE | 2019-04-11 15:15 | NUR ---
Patient is transported via wheelchair to private vehicle for discharge. All belongings are carried by patient's daughter.
--- NOTE | 2019-04-11 17:42 | Progress Note ---
DATE: 04/11/2019 Cardiology Progress Note SUBJECTIVE: The patient denies chest pain, but does endorse shortness of breath. OBJECTIVE: VITAL SIGNS: Temperature 97.7 degrees, pulse 78, respiratory rate 18, blood pressure 140/65, oxygen saturation 97% on room air. GENERAL: Awake, alert, in no acute distress. LUNGS: Clear to auscultation bilaterally. No wheezes or crackles. CARDIOVASCULAR: Normal rate, regular rhythm. No murmur. Normal S1, S2. ABDOMEN: Soft, nontender. EXTREMITIES: 1+ pitting edema. CARDIAC MEDICATIONS: Xarelto 20 mg p.o. daily, valsartan 80 mg p.o. daily, amiodarone 200 mg p.o. daily, simvastatin 10 mg p.o. at bedtime. LABORATORY DATA: WBC 15.12, hemoglobin 10, hematocrit 31.7, platelets 387. Sodium 138, potassium 3.8, chloride 109, CO2 of 23, BUN 33, creatinine 1.08. IMPRESSION: 1. Bronchitis. 2. Acute on chronic kidney disease, improved. 3. Rheumatoid arthritis. 4. Hypertension. 5. Hyperlipidemia. 6. Paroxysmal atrial fibrillation. RECOMMENDATIONS: Continue current cardiac medications. Monitor blood pressure. She may need further titration of valsartan as an outpatient. Continue Xarelto for CVA prophylaxis. Antibiotics per primary service. Thank you for this consult. We will continue to follow. Conchis Mar MD [facility]/MODL /[id number]
--- NOTE | 2019-04-12 10:57 | Discharge Summary ---
DISCHARGE DIAGNOSES: 1. Bronchiectasis with acute exacerbation and sepsis, present on admission. 2. Chronic obstructive pulmonary disease. 3. Rheumatoid arthritis, requiring treatment with methotrexate and low-dose Medrol. 4. Hypertension. 5. Paroxysmal atrial fibrillation. DISCHARGE MEDICATIONS: 1. Amiodarone 200 mg p.o. daily. 2. Lovastatin 20 mg p.o. at bedtime. 3. Methotrexate 17.5 mg p.o. q.week. 4. Medrol 4 mg p.o. daily. 5. Metoprolol SR 24 mg p.o. daily. 6. Xarelto 20 mg p.o. daily. 7. Losartan 100 mg p.o. daily. HISTORY OF PRESENT ILLNESS: The patient is a 78-year-old man. She has a history of bronchiectasis and rheumatoid arthritis. She also has a history of atrial fibrillation and hypertension. She came in complaining of worsening congestion and fatigue. She noticed a cough productive of some discolored phlegm. HOSPITAL COURSE: The patient was admitted. Her chest x-ray showed chronic changes in the right upper lobe that appeared similar to her prior x-rays. She also had an elevated white count and increased respiratory rate to suggestive of active infection. She received IV antibiotics. She had cultures done. She also received Solu-Medrol along with bronchodilators. The patient slowly improved. Her dyspnea and congestion improved. Her cough subsided. She also received intravenous fluids and her creatinine returned to normal. DISPOSITION: The patient will be discharged home. She will follow up with Dr. Dewitt in 1 week. Mark Dewitt MD [facility]/FELIPE /[id number]
== END 2019-04-11 15:15 | disposition home or self-care (01) | DRG 871 ==
LOC: ER 13:26 → ERHOLD 14:35 → MED/SURG2 04-07 13:10
PROVIDERS: ADMIT Internal Medicine Critical Care Medicine; ATTEND Internal Medicine Critical Care Medicine
DX: A41.9 Sepsis, unspecified organism (principal); J18.9 Pneumonia, unspecified organism; N17.9 Acute kidney failure, unspecified; J44.0 Chronic obstructive pulmonary disease with (acute) lower respiratory infection; J44.1 Chronic obstructive pulmonary disease with (acute) exacerbation; I48.0 Paroxysmal atrial fibrillation; Z79.01 Long term (current) use of anticoagulants; M06.9 Rheumatoid arthritis, unspecified; E78.5 Hyperlipidemia, unspecified; Z86.11 Personal history of tuberculosis; I12.9 Hypertensive chronic kidney disease with stage 1 through stage 4 chronic kidney disease, or unspecified chronic kidney disease; N18.9 Chronic kidney disease, unspecified
CPT/HCPCS: 36415; 71045; 71046; 80053; 81001; 82550; 82553; 82948; 83605; 83690; 83735; 83880; 84443; 84484; 85025; 85610; 85730; 87040; 87070; 87086; 87186; 87205; 87400; 93005; 99284; J0456; J0696; J2920; J2930; J7030

== ENCOUNTER 2022-07-19 05:11 | Inpatient (IN) | payer MEDICARE, OTHER ==
[~2022-07-19] VITALS: Ht 154.9 cm; Wt 47.6 kg
[~2022-07-19 05:11] MED LIST changes: -CEFTRIAXONE SOD 1 GM/NS 50 ML 50 ML IV SCH; +LATANOPROST2.5 ML OP; +LOSARTAN POTASS50 MG PO; +METOPROLOL SUCC50 MG PO; +MULTI-VITAMIN1 EACH PO; +VITAMIN C500 M4 PEG
[2022-07-19 06:10] LABS: BASOPHILS # (AUTO) 0.1 (0.0-0.1); BASOPHILS % 0.5 % (0.0-1.0); EOSINOPHILS # (AUTO) 0.2 (0.0-0.4); EOSINOPHILS % 1.4 % (0.0-6.0); HEMATOCRIT 38.9 % (34.2-44.1); HEMOGLOBIN 11.7 g/dL (12.0-16.0); LYMPHOCYTES # (AUTO) 2.5 (1.0-3.2); MEAN CORPUSCULAR HEMOGLOBIN 27.9 pg (28-32); MEAN CORPUSCULAR HGB CONC 30.1 g/dL (31-35); MEAN CORPUSCULAR VOLUME 92.6 fL (81-99); MONOCYTES # (AUTO) 0.6 (0.2-0.8); MONOCYTES % 3.6 % (4.4-11.3); PLATELET COUNT 307 x10e3/uL (140-360); RED CELL DISTRIBUTION WIDTH 15.3 % (11.7-14.4)
[2022-07-19 06:27] LABS: ALBUMIN 3.1 g/dL (3.5-5.0); ALBUMIN/GLOBULIN RATIO 1.1 (0.8-2.0); ANION GAP 17.1 mmol/L (8-16); CALCIUM 9.1 mg/dL (8.4-10.2); CREATININE, SERUM 1.15 mg/dL (0.57-1.11); POTASSIUM 4.1 mmol/L (3.5-5.1)
[2022-07-19 06:29] LABS: SALICYLATE < 5.0 mg/dL (0-30)
[2022-07-19] MEDS ORDERED: SODIUM CHLORIDE 0.9% 1000ML 1,000 ML IV STA (06:50)
[2022-07-19] MEDS ORDERED: FOLIC ACID PO (06:55)
[2022-07-19] MEDS ORDERED: FERROUS SULFAT324 MG PO (06:55)
[2022-07-19] MEDS ORDERED: XARELTO10 MG PO (06:55)
[2022-07-19] MEDS ORDERED: MEDROL4 MG PO (06:55)
[2022-07-19] MEDS ORDERED: LUMIGAN2.5 M1 OP (06:55)
[2022-07-19] MEDS ORDERED: METOPROLOL SUCC50 MG PO (06:55)
[2022-07-19 08:51] LABS: BACTERIA,URINE FEW /HPF; CLARITY,URINE CLEAR (CLEAR); COLOR,URINE YELLOW (YELLOW); EPITHELIAL CELLS,URINE FEW /LPF; KETONES,URINE NEGATIVE (NEGATIVE); LEUKOCYTE ESTERASE ,URINE NEGATIVE (NEGATIVE); NITRITE,URINE NEGATIVE (NEGATIVE); PROTEIN,URINE DIPSTICK NEGATIVE (NEGATIVE); RBC,URINE 0-5 /HPF (0-5); URINE UROBILINOGEN 0.2 mg/dL (0.2 - 1); WBC,URINE (MAN) 0-5 /HPF (0-5)
[2022-07-19] MEDS: SODIUM CHLORIDE 0.9% 1000ML 1,000 ML IV SCH ×2 (09:34→16:36)
[2022-07-19] MEDS ORDERED: AMIODARONE HCL 200 MG TAB PO SCH ×2 (09:45→17:00)
[2022-07-19] MEDS: LATANOPROST(OPTH) 2.5 ML BTL OP SCH (09:45)
[2022-07-19] MEDS ORDERED: RIVAROXABAN 10 MG TABLET PO SCH (09:45)
[2022-07-19 10:30] VITALS: BP 114/45
[2022-07-19] MEDS: IPRATROPIUM BROMIDE 0.02% 2.5 ML NEB NEB SCH ×3 (10:30→23:30)
[2022-07-19] MEDS: ALBUTEROL SULF 0.083% NEB SOLN 3 ML NEB NEB SCH ×4 (10:30→23:30)
[2022-07-19 10:37] VITALS: BP 114/45
[2022-07-19] MEDS: METHYLPREDNISOLONE SOD SUCC 40 MG/ML VIAL 1ML IV SCH ×2 (11:36→21:12)
[2022-07-19] MEDS: FOLIC ACID 1 MG TAB PO SCH (11:36)
[2022-07-19] MEDS: METOPROLOL SUCCINATE 50 MG TAB XL PO SCH (11:37)
[2022-07-19] MEDS: FERROUS SULFATE 325 MG TAB PO SCH (11:37)
[2022-07-19] MEDS: MULTIVITAMINS/MINERALS TAB PO SCH (11:37)
[2022-07-19 12:47] VITALS: BP 113/43
[2022-07-19 13:45] LABS: CREATINE KINASE MB 6.7 ng/mL (0-4.3)
[2022-07-19] MEDS ORDERED: REMDESIVIR 200MG 200 MG in SODIUM CHLORIDE 0.9% 100 ML IV ONE (16:00)
[2022-07-19] MEDS: RIVAROXABAN 10 MG TABLET PO SCH (16:31)
[2022-07-19 16:46] VITALS: BP 119/43
[2022-07-19 18:18] LABS: CREATINE KINASE MB 4.5 ng/mL (0-4.3)
[2022-07-19 20:00] VITALS: BP 127/45
[2022-07-19] MEDS: BIMATOPROST(OPTH) 2.5 ML BOTTLE OP SCH (21:00)
[2022-07-19] MEDS: SIMVASTATIN 20 MG TAB PO SCH (21:13)
[2022-07-19 21:15] VITALS: BP 127/45
[2022-07-20] VITALS (8 sets, daily range): BP systolic 116–142; BP diastolic 47–60
[2022-07-20] MEDS: ALBUTEROL SULF 0.083% NEB SOLN 3 ML NEB NEB SCH ×6 (03:00→23:00)
[2022-07-20] MEDS: IPRATROPIUM BROMIDE 0.02% 2.5 ML NEB NEB SCH ×3 (03:48→19:00)
[2022-07-20 04:53] LABS: BASOPHILS % 0.1 % (0.0-1.0); HEMATOCRIT 32.3 % (34.2-44.1); LYMPHOCYTES # (AUTO) 0.7 (1.0-3.2); LYMPHOCYTES % 6.6 % (18.0-39.1); MEAN CORPUSCULAR VOLUME 90.5 fL (81-99); MONOCYTES # (AUTO) 0.2 (0.2-0.8); MONOCYTES % 1.5 % (4.4-11.3); NEUTROPHILS # (AUTO) 9.4 (2.1-6.9); NEUTROPHILS % 90.9 % (38.7-80.0); PLATELET COUNT 217 x10e3/uL (140-360); RED BLOOD COUNT 3.57 x10e6/uL (3.6-5.1); RED CELL DISTRIBUTION WIDTH 15.1 % (11.7-14.4)
[2022-07-20 05:13] LABS: ALBUMIN 2.8 g/dL (3.5-5.0); ALBUMIN/GLOBULIN RATIO 1.1 (0.8-2.0); ANION GAP 14.2 mmol/L (8-16); CALCIUM 8.5 mg/dL (8.4-10.2); CREATININE, SERUM 0.89 mg/dL (0.57-1.11); POTASSIUM 4.2 mmol/L (3.5-5.1)
[2022-07-20 05:46] LABS: CREATINE KINASE MB 5.4 ng/mL (0-4.3)
[2022-07-20] MEDS ORDERED: FOLIC ACID 1 MG TAB PO SCH (09:00)
[2022-07-20] MEDS: LATANOPROST(OPTH) 2.5 ML BTL OP SCH (09:00)
[2022-07-20] MEDS: METHYLPREDNISOLONE SOD SUCC 40 MG/ML VIAL 1ML IV SCH ×2 (09:28→20:45)
[2022-07-20] MEDS: FERROUS SULFATE 325 MG TAB PO SCH (09:28)
[2022-07-20] MEDS: METOPROLOL SUCCINATE 50 MG TAB XL PO SCH (09:28)
[2022-07-20] MEDS ORDERED: IOPAMIDOL 370 MG/ML 100 ML INFUS..BTL INJ ONE (14:03)
[2022-07-20] MEDS: REMDESIVIR 100MG 100 MG in SODIUM CHLORIDE 0.9% 100 ML IV SCH (15:42)
[2022-07-20] MEDS: RIVAROXABAN 10 MG TABLET PO SCH (16:21)
[2022-07-20] MEDS: SIMVASTATIN 20 MG TAB PO SCH (20:45)
[2022-07-20] MEDS: BIMATOPROST(OPTH) 2.5 ML BOTTLE OP SCH (20:45)
[2022-07-21] VITALS (9 sets, daily range): BP systolic 121–139; BP diastolic 46–58
[2022-07-21] MEDS: IPRATROPIUM BROMIDE 0.02% 2.5 ML NEB NEB SCH ×4 (01:00→18:55)
[2022-07-21] MEDS: ALBUTEROL SULF 0.083% NEB SOLN 3 ML NEB NEB SCH ×6 (03:00→23:00)
[2022-07-21] MEDS: MULTIVITAMINS/MINERALS TAB PO SCH (08:49)
[2022-07-21] MEDS: METOPROLOL SUCCINATE 50 MG TAB XL PO SCH (08:49)
[2022-07-21] MEDS: FERROUS SULFATE 325 MG TAB PO SCH (08:50)
[2022-07-21] MEDS: METHYLPREDNISOLONE SOD SUCC 40 MG/ML VIAL 1ML IV SCH ×2 (08:50→20:37)
[2022-07-21] MEDS: FOLIC ACID 1 MG TAB PO SCH (08:50)
[2022-07-21] MEDS: REMDESIVIR 100MG 100 MG in SODIUM CHLORIDE 0.9% 100 ML IV SCH (15:58)
[2022-07-21] MEDS: RIVAROXABAN 10 MG TABLET PO SCH (16:14)
[2022-07-21] MEDS: SIMVASTATIN 20 MG TAB PO SCH (20:37)
[2022-07-21] MEDS: BIMATOPROST(OPTH) 2.5 ML BOTTLE OP SCH (20:48)
[2022-07-22] VITALS (7 sets, daily range): BP systolic 123–144; BP diastolic 43–67
[2022-07-22] MEDS: IPRATROPIUM BROMIDE 0.02% 2.5 ML NEB NEB SCH ×4 (01:00→19:00)
[2022-07-22] MEDS: ALBUTEROL SULF 0.083% NEB SOLN 3 ML NEB NEB SCH ×5 (07:00→23:00)
[2022-07-22] MEDS ORDERED: AZITHROMYCIN 250 MG TAB PO SCH (09:00)
[2022-07-22] MEDS: METHYLPREDNISOLONE SOD SUCC 40 MG/ML VIAL 1ML IV SCH ×2 (09:33→21:26)
[2022-07-22] MEDS: MULTIVITAMINS/MINERALS TAB PO SCH (09:33)
[2022-07-22] MEDS: FERROUS SULFATE 325 MG TAB PO SCH (09:34)
[2022-07-22] MEDS: FOLIC ACID 1 MG TAB PO SCH (09:34)
[2022-07-22] MEDS: METOPROLOL SUCCINATE 50 MG TAB XL PO SCH (09:34)
[2022-07-22] MEDS: REMDESIVIR 100MG 100 MG in SODIUM CHLORIDE 0.9% 100 ML IV SCH (15:54)
[2022-07-22] MEDS: RIVAROXABAN 10 MG TABLET PO SCH (16:39)
[2022-07-22] MEDS: BIMATOPROST(OPTH) 2.5 ML BOTTLE OP SCH (21:00)
[2022-07-22] MEDS: SIMVASTATIN 20 MG TAB PO SCH (21:26)
[2022-07-23] VITALS (7 sets, daily range): BP systolic 118–157; BP diastolic 39–57
[2022-07-23] MEDS: ALBUTEROL SULF 0.083% NEB SOLN 3 ML NEB NEB SCH ×3 (03:00→11:00)
[2022-07-23] MEDS: IPRATROPIUM BROMIDE 0.02% 2.5 ML NEB NEB SCH ×3 (07:00→13:00)
[2022-07-23] MEDS: FOLIC ACID 1 MG TAB PO SCH (08:46)
[2022-07-23] MEDS: METHYLPREDNISOLONE SOD SUCC 40 MG/ML VIAL 1ML IV SCH ×2 (08:47→21:47)
[2022-07-23] MEDS: MULTIVITAMINS/MINERALS TAB PO SCH (08:47)
[2022-07-23] MEDS: FERROUS SULFATE 325 MG TAB PO SCH (08:47)
[2022-07-23] MEDS: METOPROLOL SUCCINATE 50 MG TAB XL PO SCH (08:47)
[2022-07-23] MEDS ORDERED: FUROSEMIDE INJ 10 MG/ML 4 ML VIAL IV ONE (09:15)
[2022-07-23] MEDS ORDERED: POTASSIUM CHLORIDE 10MEQ EA PO ONE (09:15)
[2022-07-23] MEDS: REMDESIVIR 100MG 100 MG in SODIUM CHLORIDE 0.9% 100 ML IV SCH (16:56)
[2022-07-23] MEDS: RIVAROXABAN 10 MG TABLET PO SCH (16:58)
[2022-07-23] MEDS: BIMATOPROST(OPTH) 2.5 ML BOTTLE OP SCH (21:00)
[2022-07-23] MEDS: SIMVASTATIN 20 MG TAB PO SCH (21:49)
[2022-07-24 05:09] VITALS: BP 115/45
[2022-07-24] MEDS: IPRATROPIUM BROMIDE 0.02% 2.5 ML NEB NEB SCH (07:00)
[2022-07-24] MEDS: ALBUTEROL SULF 0.083% NEB SOLN 3 ML NEB NEB SCH (07:00)
[2022-07-24 07:27] LABS: BASOPHILS % 0.1 % (0.0-1.0); HEMATOCRIT 43.1 % (34.2-44.1); HEMOGLOBIN 13.5 g/dL (12.0-16.0); LYMPHOCYTES # (AUTO) 0.9 (1.0-3.2); LYMPHOCYTES % 9.1 % (18.0-39.1); MEAN CORPUSCULAR HEMOGLOBIN 28.1 pg (28-32); MEAN CORPUSCULAR HGB CONC 31.3 g/dL (31-35); MEAN CORPUSCULAR VOLUME 89.8 fL (81-99); MONOCYTES # (AUTO) 0.5 (0.2-0.8); MONOCYTES % 4.6 % (4.4-11.3); NEUTROPHILS # (AUTO) 8.7 (2.1-6.9); NEUTROPHILS % 85.2 % (38.7-80.0); PLATELET COUNT 313 x10e3/uL (140-360); RED CELL DISTRIBUTION WIDTH 15.9 % (11.7-14.4)
[2022-07-24 07:44] LABS: ANION GAP 17.5 mmol/L (8-16); CALCIUM 8.7 mg/dL (8.4-10.2); CREATININE, SERUM 1.17 mg/dL (0.57-1.11); POTASSIUM 4.5 mmol/L (3.5-5.1)
[2022-07-24 09:10] VITALS: BP 98/85
[2022-07-24] MEDS: MULTIVITAMINS/MINERALS TAB PO SCH (09:22)
[2022-07-24] MEDS: FOLIC ACID 1 MG TAB PO SCH (09:22)
[2022-07-24] MEDS: METHYLPREDNISOLONE SOD SUCC 40 MG/ML VIAL 1ML IV SCH (09:23)
[2022-07-24] MEDS: FERROUS SULFATE 325 MG TAB PO SCH (09:23)
[2022-07-24] MEDS: METOPROLOL SUCCINATE 50 MG TAB XL PO SCH (09:24)
[2022-07-24 09:48] VITALS: BP 98/85
[2022-07-24 12:21] VITALS: BP 143/53
== END 2022-07-24 13:58 | disposition home or self-care (01) | DRG 177 ==
LOC: ER 05:23 → ERHOLD 08:43 → MED/SURG2 10:21 → UNDODISIN 07-24 10:53
PROVIDERS: ADMIT Internal Medicine; ATTEND Internal Medicine
PROC: 8E0ZXY6 Isolation (ICD-10-PCS; principal; 2022-07-19)
PROC: XW033E5 Introduction of Remdesivir Anti-infective into Peripheral Vein, Percutaneous Approach, New Technology Group 5 (ICD-10-PCS; 2022-07-23)
DX: U07.1 COVID-19 (principal); G93.41 Metabolic encephalopathy; J12.82 Pneumonia due to coronavirus disease 2019; J96.01 Acute respiratory failure with hypoxia; J47.1 Bronchiectasis with (acute) exacerbation; E87.20 Acidosis, unspecified; I70.8 Atherosclerosis of other arteries; G40.909 Epilepsy, unspecified, not intractable, without status epilepticus; F03.90 Unspecified dementia, unspecified severity, without behavioral disturbance, psychotic disturbance, mood disturbance, and anxiety; E78.00 Pure hypercholesterolemia, unspecified; I10 Essential (primary) hypertension; M06.9 Rheumatoid arthritis, unspecified; I48.0 Paroxysmal atrial fibrillation; H40.9 Unspecified glaucoma; J84.10 Pulmonary fibrosis, unspecified; M19.90 Unspecified osteoarthritis, unspecified site; Z79.01 Long term (current) use of anticoagulants; Z88.2 Allergy status to sulfonamides; Z86.11 Personal history of tuberculosis; Z87.891 Personal history of nicotine dependence; Z88.0 Allergy status to penicillin; Z28.310 Unvaccinated for COVID-19
CPT/HCPCS: 36415; 70450; 70544; 70551; 71045; 71250; 74177; 80048; 80053; 80320; 80329; 81001; 82550; 82553; 83605; 84484; 85025; 87040; 87086; 93005; 93306; 93880; 93930; 94640; 94799; 95819; 99252; 99284; J0248; J0696; J1940; J2920; J7030; J7050; Q9967

== ENCOUNTER 2022-11-02 06:43 | Emergency (ER) | payer MEDICARE, OTHER ==
[~2022-11-02] VITALS: Ht 154.9 cm; Wt 36.3 kg
[~2022-11-02 06:43] MED LIST changes: +FERROUS SULFAT324 MG PO; +FOLIC ACID PO; +LUMIGAN2.5 M1 OP; +MEDROL4 MG PO; -VITAMIN C500 M4 PEG; +VITAMIN C500 M4 PO; +XARELTO10 MG PO
[2022-11-02] MEDS ORDERED: SODIUM CHLORIDE 0.9% 1000ML 1,000 ML IV STA (06:53)
[2022-11-02 07:07] LABS: BASOPHILS % 0.3 % (0.0-1.0); EOSINOPHILS # (AUTO) 0.1 (0.0-0.4); EOSINOPHILS % 0.5 % (0.0-6.0); HEMATOCRIT 35.5 % (34.2-44.1); HEMOGLOBIN 11.5 g/dL (12.0-16.0); LYMPHOCYTES # (AUTO) 2.7 (1.0-3.2); LYMPHOCYTES % 28.3 % (18.0-39.1); MEAN CORPUSCULAR HEMOGLOBIN 27.7 pg (28-32); MEAN CORPUSCULAR HGB CONC 32.4 g/dL (31-35); MEAN CORPUSCULAR VOLUME 85.5 fL (81-99); MONOCYTES # (AUTO) 1.2 (0.2-0.8); MONOCYTES % 12.6 % (4.4-11.3); NEUTROPHILS # (AUTO) 5.5 (2.1-6.9); NEUTROPHILS % 57.9 % (38.7-80.0); PLATELET COUNT 280 x10e3/uL (140-360); RED BLOOD COUNT 4.15 x10e6/uL (3.6-5.1); RED CELL DISTRIBUTION WIDTH 15.1 % (11.7-14.4)
[2022-11-02 07:28] LABS: ALBUMIN 3.2 g/dL (3.5-5.0); ANION GAP 15.8 mmol/L (8-16); CALCIUM 9.1 mg/dL (8.4-10.2); CREATININE, SERUM 1.09 mg/dL (0.57-1.11); MAGNESIUM 1.8 MG/DL (1.3-2.1); POTASSIUM 4.8 mmol/L (3.5-5.1)
[2022-11-02 07:30] VITALS: O2SAT 99
[2022-11-02 07:30] LABS: INR 1.22
[2022-11-02 07:30] LABS: CLARITY,URINE CLEAR (CLEAR); COLOR,URINE YELLOW (YELLOW)
[2022-11-02 07:31] LABS: PARTIAL THROMBOPLASTIN TIME 29.4 seconds (23.8-35.5)
[2022-11-02 07:32] LABS: KETONES,URINE NEGATIVE (NEGATIVE); LEUKOCYTE ESTERASE ,URINE NEGATIVE (NEGATIVE); NITRITE,URINE NEGATIVE (NEGATIVE); PROTEIN,URINE DIPSTICK NEGATIVE (NEGATIVE); URINE UROBILINOGEN 0.2 mg/dL (0.2 - 1)
[2022-11-02 07:35] LABS: BACTERIA,URINE MODERATE /HPF; EPITHELIAL CELLS,URINE FEW /LPF; RBC,URINE 0-5 /HPF (0-5); WBC,URINE (MAN) 0-5 /HPF (0-5)
[2022-11-02] MEDS ORDERED: AZITHROMYCIN250 MG PO (10:00)
[2022-11-03] MEDS ORDERED: LOSARTAN POTASS25 MG PO (15:24)
[2022-11-03] MEDS ORDERED: FERROUS SULFAT324 MG PO (15:29)
[2022-11-04] MEDS ORDERED: KEPPRA250 MG PO (18:11)
== END 2022-11-02 10:48 | disposition home or self-care (01) ==
LOC: ER 06:45
DX: R53.1 Weakness (principal); J47.9 Bronchiectasis, uncomplicated; I10 Essential (primary) hypertension; I48.91 Unspecified atrial fibrillation; M06.9 Rheumatoid arthritis, unspecified; Z20.822 Contact with and (suspected) exposure to COVID-19; Z79.899 Other long term (current) drug therapy
CPT/HCPCS: 36415; 70450; 71045; 71250; 80053; 81001; 82550; 83735; 84484; 85025; 85610; 85730; 87086; 93005; 99284; J7030; U0002

== ENCOUNTER 2023-02-07 14:58 | Inpatient (IN) | payer MEDICARE, OTHER ==
[~2023-02-07] VITALS: Ht 154.9 cm; Wt 40.8 kg
[~2023-02-07 14:58] MED LIST changes: +AZITHROMYCIN250 MG PO; +KEPPRA250 MG PO; +LOSARTAN POTASS25 MG PO
[2023-02-07] MEDS ORDERED: SODIUM CHLORIDE 0.9% 500ML 500 ML IV ONE (15:45)
[2023-02-07 15:47] LABS: BASOPHILS % 0.3 % (0.0-1.0); EOSINOPHILS % 0.3 % (0.0-6.0); HEMATOCRIT 38.5 % (34.2-44.1); HEMOGLOBIN 12.7 g/dL (12.0-16.0); LYMPHOCYTES # (AUTO) 0.9 (1.0-3.2); MEAN CORPUSCULAR HEMOGLOBIN 27.7 pg (28-32); MEAN CORPUSCULAR VOLUME 84.1 fL (81-99); MONOCYTES # (AUTO) 0.8 (0.2-0.8); NEUTROPHILS # (AUTO) 11.2 (2.1-6.9); PLATELET COUNT 359 x10e3/uL (140-360); RED BLOOD COUNT 4.58 x10e6/uL (3.6-5.1); RED CELL DISTRIBUTION WIDTH 15.3 % (11.7-14.4); WHITE BLOOD COUNT 12.98 x10e3/uL (4.8-10.8)
[2023-02-07 15:55] LABS: CLARITY,URINE HAZY (CLEAR); COLOR,URINE YELLOW (YELLOW); LEUKOCYTE ESTERASE ,URINE NEGATIVE (NEGATIVE); NITRITE,URINE NEGATIVE (NEGATIVE)
[2023-02-07 15:56] LABS: KETONES,URINE TRACE (NEGATIVE); PROTEIN,URINE DIPSTICK TRACE (NEGATIVE); RBC,URINE 0-5 /HPF (0-5); URINE UROBILINOGEN 0.2 mg/dL (0.2 - 1); WBC,URINE (MAN) 0-5 /HPF (0-5)
[2023-02-07 15:57] LABS: BACTERIA,URINE FEW /HPF; EPITHELIAL CELLS,URINE FEW /LPF
[2023-02-07 16:00] LABS: INR 1.64; PARTIAL THROMBOPLASTIN TIME 30.3 seconds (23.8-35.5); PROTHROMBIN TIME 20.4 seconds (11.9-14.5)
[2023-02-07] MEDS ORDERED: METHYLPREDNISOLONE SOD SUCC 125 MG/2ML VIAL IV ONE (16:00)
[2023-02-07 16:07] LABS: ALBUMIN 3.5 g/dL (3.5-5.0); ALBUMIN/GLOBULIN RATIO 0.9 (0.8-2.0); ANION GAP 18.7 mmol/L (8-16); CALCIUM 9.7 mg/dL (8.4-10.2); CREATININE, SERUM 0.94 mg/dL (0.57-1.11); MAGNESIUM 1.9 MG/DL (1.3-2.1); POTASSIUM 4.7 mmol/L (3.5-5.1)
[2023-02-07 16:27] LABS: THYROID STIMULATING HORMONE 2.152 uIU/mL (0.350-4.940)
[2023-02-07] MEDS: ACETAMINOPHEN 325 MG TAB PO ONE ×2 (17:26→18:38)
[2023-02-07] MEDS ORDERED: ONDANSETRON HCL INJ 2MG/ML 2ML 2 MG/ML VIAL IV PRN (17:30)
[2023-02-07 20:00] VITALS: BP 134/65; PULSE 99; RESP 22; TEMP 98.6; O2SAT 95
[2023-02-07 20:26] VITALS: BP 134/65; PULSE 99; RESP 22; TEMP 98.6; O2SAT 95
[2023-02-07 21:00] VITALS: BP 134/65; PULSE 99; RESP 22; TEMP 98.6; O2SAT 95
[2023-02-07] MEDS: HYDROCODONE/APAP 5MG-325MG TAB PO PRN (21:01)
[2023-02-07] MEDS: SODIUM CHLORIDE 0.9% 1000ML 1,000 ML IV SCH (21:02)
[2023-02-07] MEDS ORDERED: METOPROLOL SUCC25 MG PO (21:25)
[2023-02-07] MEDS ORDERED: ATORVASTATIN CA40 MG PO (21:25)
[2023-02-07] MEDS ORDERED: POTASSIUM CHLO20 ME1 PO (21:25)
[2023-02-07] MEDS ORDERED: METHYLPREDNISOLO4 MG PO (21:25)
[2023-02-07] MEDS ORDERED: ELIQUIS2.5 MG PO (21:25)
[2023-02-07] MEDS ORDERED: LEVETIRACETAM500 MG PO (21:25)
[2023-02-08] VITALS (7 sets, daily range): BP systolic 113–141; BP diastolic 43–59; PULSE 70–98; RESP 16–19; TEMP 97.4–98.6; O2SAT 96–100
[2023-02-08 06:08] LABS: BASOPHILS % 0.3 % (0.0-1.0); HEMATOCRIT 36.2 % (34.2-44.1); LYMPHOCYTES # (AUTO) 0.7 (1.0-3.2); LYMPHOCYTES % 6.1 % (18.0-39.1); MEAN CORPUSCULAR HEMOGLOBIN 28.3 pg (28-32); MEAN CORPUSCULAR HGB CONC 33.1 g/dL (31-35); MEAN CORPUSCULAR VOLUME 85.4 fL (81-99); MONOCYTES # (AUTO) 0.9 (0.2-0.8); MONOCYTES % 8.2 % (4.4-11.3); NEUTROPHILS # (AUTO) 9.2 (2.1-6.9); NEUTROPHILS % 84.8 % (38.7-80.0); PLATELET COUNT 333 x10e3/uL (140-360); RED BLOOD COUNT 4.24 x10e6/uL (3.6-5.1); RED CELL DISTRIBUTION WIDTH 15.5 % (11.7-14.4)
[2023-02-08] MEDS: SODIUM CHLORIDE 0.9% 1000ML 1,000 ML IV SCH (06:30)
[2023-02-08] MEDS: HYDROCODONE/APAP 5MG-325MG TAB PO PRN ×2 (06:35→12:48)
[2023-02-08 06:36] LABS: ALBUMIN 2.5 g/dL (3.5-5.0); ALBUMIN/GLOBULIN RATIO 0.8 (0.8-2.0); ANION GAP 15.6 mmol/L (8-16); CALCIUM 8.6 mg/dL (8.4-10.2); CREATININE, SERUM 1.09 mg/dL (0.57-1.11); POTASSIUM 4.6 mmol/L (3.5-5.1)
[2023-02-08 06:52] LABS: CREATINE KINASE 59 IU/L (29-168)
[2023-02-08] MEDS: BIMATOPROST(OPTH) 2.5 ML BOTTLE OP SCH (21:00)
[2023-02-09] VITALS (7 sets, daily range): BP systolic 135–166; BP diastolic 56–70; PULSE 98–105; RESP 17–21; TEMP 98.2–99.5; O2SAT 93–96
[2023-02-09] MEDS ORDERED: METHOTREXATE SOD 2.5 MG TAB PO SCH (08:00)
[2023-02-09] MEDS: FERROUS SULFATE 325 MG TAB PO SCH (09:21)
[2023-02-09] MEDS: ATORVASTATIN 40 MG TAB PO SCH (09:21)
[2023-02-09] MEDS: LEVETIRACETAM 500 MG TAB PO SCH (09:21)
[2023-02-09] MEDS: METOPROLOL SUCCINATE 50 MG TAB XL PO SCH (09:22)
[2023-02-09] MEDS: LOSARTAN POTASSIUM 25 MG TAB PO SCH (09:23)
[2023-02-09] MEDS ORDERED: ONDANSETRON HCL 4 MG ORAL DISINTEGRATING TAB PO PRN (12:15)
[2023-02-09] MEDS: POLYETHYLENE GLYCOL 3350 17 GM PACK PO SCH (17:52)
[2023-02-09] MEDS: DOCUSATE SODIUM 100 MG CAP PO SCH (17:52)
[2023-02-09] MEDS: BIMATOPROST(OPTH) 2.5 ML BOTTLE OP SCH (20:46)
[2023-02-10] VITALS (7 sets, daily range): BP systolic 122–160; BP diastolic 49–67; PULSE 85–113; RESP 17–19; TEMP 97.5–99.3; O2SAT 93–99
[2023-02-10 06:41] LABS: BASOPHILS % 0.2 % (0.0-1.0); EOSINOPHILS # (AUTO) 0.1 (0.0-0.4); EOSINOPHILS % 0.4 % (0.0-6.0); HEMATOCRIT 35.4 % (34.2-44.1); HEMOGLOBIN 11.8 g/dL (12.0-16.0); LYMPHOCYTES # (AUTO) 1.1 (1.0-3.2); LYMPHOCYTES % 8.4 % (18.0-39.1); MEAN CORPUSCULAR HEMOGLOBIN 27.7 pg (28-32); MEAN CORPUSCULAR HGB CONC 33.3 g/dL (31-35); MEAN CORPUSCULAR VOLUME 83.1 fL (81-99); MONOCYTES # (AUTO) 0.8 (0.2-0.8); MONOCYTES % 5.9 % (4.4-11.3); NEUTROPHILS # (AUTO) 11.1 (2.1-6.9); NEUTROPHILS % 84.8 % (38.7-80.0); PLATELET COUNT 379 x10e3/uL (140-360); RED BLOOD COUNT 4.26 x10e6/uL (3.6-5.1); RED CELL DISTRIBUTION WIDTH 15.3 % (11.7-14.4)
[2023-02-10 07:01] LABS: ANION GAP 11.7 mmol/L (8-16); CALCIUM 8.7 mg/dL (8.4-10.2); CREATININE, SERUM 0.79 mg/dL (0.57-1.11); MAGNESIUM 1.8 MG/DL (1.3-2.1); PHOSPHORUS 2.7 MG/DL (2.3-4.7); POTASSIUM 4.7 mmol/L (3.5-5.1)
[2023-02-10] MEDS: METOPROLOL SUCCINATE 50 MG TAB XL PO SCH (09:15)
[2023-02-10] MEDS: LEVETIRACETAM 500 MG TAB PO SCH (09:16)
[2023-02-10] MEDS: ATORVASTATIN 40 MG TAB PO SCH (09:16)
[2023-02-10] MEDS: LOSARTAN POTASSIUM 25 MG TAB PO SCH (09:16)
[2023-02-10] MEDS: FERROUS SULFATE 325 MG TAB PO SCH (09:16)
[2023-02-10] MEDS: DOCUSATE SODIUM 100 MG CAP PO SCH ×2 (09:16→16:31)
[2023-02-10] MEDS: POLYETHYLENE GLYCOL 3350 17 GM PACK PO SCH ×2 (09:16→16:32)
[2023-02-10] MEDS: ACETAMINOPHEN 325 MG TAB PO PRN ×2 (11:34→23:01)
[2023-02-10] MEDS ORDERED: LIDOCAINE 4% PATCH TP ONE (14:00)
[2023-02-10] MEDS: DEXTROSE 5%/0.9% SOD CHL 1,000 ML IV SCH (14:20)
[2023-02-10] MEDS: BIMATOPROST(OPTH) 2.5 ML BOTTLE OP SCH (20:36)
[2023-02-11] VITALS (7 sets, daily range): BP systolic 121–128; BP diastolic 42–58; PULSE 81–100; RESP 16–18; TEMP 97.3–98.4; O2SAT 93–99
[2023-02-11 05:57] LABS: BASOPHILS % 0.2 % (0.0-1.0); EOSINOPHILS # (AUTO) 0.1 (0.0-0.4); EOSINOPHILS % 0.9 % (0.0-6.0); HEMOGLOBIN 10.8 g/dL (12.0-16.0); LYMPHOCYTES # (AUTO) 1.2 (1.0-3.2); MEAN CORPUSCULAR HEMOGLOBIN 28.9 pg (28-32); MEAN CORPUSCULAR HGB CONC 33.8 g/dL (31-35); MEAN CORPUSCULAR VOLUME 85.6 fL (81-99); MONOCYTES # (AUTO) 0.3 (0.2-0.8); MONOCYTES % 2.8 % (4.4-11.3); NEUTROPHILS # (AUTO) 10.5 (2.1-6.9); NEUTROPHILS % 85.5 % (38.7-80.0); PLATELET COUNT 352 x10e3/uL (140-360); RED BLOOD COUNT 3.74 x10e6/uL (3.6-5.1); RED CELL DISTRIBUTION WIDTH 15.7 % (11.7-14.4); WHITE BLOOD COUNT 12.25 x10e3/uL (4.8-10.8)
[2023-02-11 06:42] LABS: ALBUMIN 2.2 g/dL (3.5-5.0); ALBUMIN/GLOBULIN RATIO 0.8 (0.8-2.0); ANION GAP 10.5 mmol/L (8-16); CALCIUM 8.2 mg/dL (8.4-10.2); CREATININE, SERUM 0.87 mg/dL (0.57-1.11); POTASSIUM 4.5 mmol/L (3.5-5.1)
[2023-02-11] MEDS: DEXTROSE 5%/0.9% SOD CHL 1,000 ML IV SCH ×2 (07:58→21:08)
[2023-02-11] MEDS: METOPROLOL SUCCINATE 50 MG TAB XL PO SCH (09:00)
[2023-02-11] MEDS: ATORVASTATIN 40 MG TAB PO SCH (09:00)
[2023-02-11] MEDS: FERROUS SULFATE 325 MG TAB PO SCH (09:00)
[2023-02-11] MEDS: LOSARTAN POTASSIUM 25 MG TAB PO SCH (09:00)
[2023-02-11] MEDS: LEVETIRACETAM 500 MG TAB PO SCH (09:00)
[2023-02-11] MEDS: DOCUSATE SODIUM 100 MG CAP PO SCH ×2 (09:00→21:08)
[2023-02-11] MEDS: POLYETHYLENE GLYCOL 3350 17 GM PACK PO SCH ×2 (09:00→21:07)
[2023-02-11] MEDS: LIDOCAINE 4% PATCH TP SCH (09:25)
[2023-02-11] MEDS ORDERED: ROCURONIUM BROMIDE 10 MG/ML 5ML VIAL IV ONE (12:10)
[2023-02-11] MEDS ORDERED: LIDOCAINE HCL 2% LOCAL INJ 5 ML SDV VIAL INJ ONE (12:10)
[2023-02-11] MEDS ORDERED: GLYCOPYRROLATE INJ 0.2 MG/ML VIAL ONE (12:10)
[2023-02-11] MEDS ORDERED: ONDANSETRON HCL INJ 2MG/ML 2ML 2 MG/ML VIAL ONE (12:10)
[2023-02-11] MEDS ORDERED: PHENYLEPHRINE HCL 1% 10 MG/ML VIAL ONE (12:10)
[2023-02-11] MEDS ORDERED: NEOSTIGMINE 1 MG/ML 10ML VIAL ONE (12:10)
[2023-02-11] MEDS ORDERED: SEVOFLURANE INHAL SOLN 250 ML PEN BTL ONE (12:10)
[2023-02-11] MEDS ORDERED: ETOMIDATE 2 MG/ML 10 ML INJ IV ONE (12:10)
[2023-02-11] MEDS ORDERED: MIDAZOLAM HCL 2 MG/2 ML VIAL ONE (12:46)
[2023-02-11] MEDS ORDERED: FENTANYL CITRATE/PF 100MCG/2 ML INJ ONE (12:46)
[2023-02-11] MEDS ORDERED: ROPIVACAINE 0.5% 5 MG/ML 30 ML SDV ONE (12:46)
[2023-02-11] MEDS ORDERED: EPINEPHRINE HCL 1:1000 1ML 1 MG/ML AMP ONE (12:47)
[2023-02-11] MEDS ORDERED: ALBUMIN 25% 12.5GM 50ML 100 ML IV ONE (13:51)
[2023-02-11] MEDS ORDERED: SODIUM CHLORIDE 0.9% 100 ML ONE (13:51)
[2023-02-11] MEDS: BIMATOPROST(OPTH) 2.5 ML BOTTLE OP SCH (21:00)
[2023-02-12] VITALS (10 sets, daily range): BP systolic 113–135; BP diastolic 43–55; PULSE 85–101; RESP 16–21; TEMP 97.3–98.2; O2SAT 93–100
[2023-02-12] MEDS: DEXTROSE 5%/0.9% SOD CHL 1,000 ML IV SCH (05:11)
[2023-02-12 06:15] LABS: BASOPHILS % 0.1 % (0.0-1.0); EOSINOPHILS % 0.1 % (0.0-6.0); HEMATOCRIT 30.2 % (34.2-44.1); HEMOGLOBIN 10.5 g/dL (12.0-16.0); LYMPHOCYTES # (AUTO) 0.9 (1.0-3.2); LYMPHOCYTES % 7.3 % (18.0-39.1); MEAN CORPUSCULAR HGB CONC 34.8 g/dL (31-35); MEAN CORPUSCULAR VOLUME 86.3 fL (81-99); MONOCYTES # (AUTO) 0.4 (0.2-0.8); MONOCYTES % 3.4 % (4.4-11.3); NEUTROPHILS # (AUTO) 10.7 (2.1-6.9); NEUTROPHILS % 88.4 % (38.7-80.0); PLATELET COUNT 331 x10e3/uL (140-360); RED CELL DISTRIBUTION WIDTH 15.9 % (11.7-14.4); RETICULOCYTE % 0.8 % (0.8-2.2); WHITE BLOOD COUNT 12.13 x10e3/uL (4.8-10.8)
[2023-02-12 06:54] LABS: ANION GAP 9.6 mmol/L (8-16); CREATININE, SERUM 0.76 mg/dL (0.57-1.11); POTASSIUM 4.6 mmol/L (3.5-5.1)
[2023-02-12 06:57] LABS: FERRITIN 180.36 ng/mL (4.63-204.00)
[2023-02-12] MEDS ORDERED: LEVALBUTEROL HCL SOLN NEBU 0.63 MG/3 ML NEB INH PRN (08:45)
[2023-02-12] MEDS: METOPROLOL SUCCINATE 50 MG TAB XL PO SCH (09:05)
[2023-02-12] MEDS: FERROUS SULFATE 325 MG TAB PO SCH (09:06)
[2023-02-12] MEDS: DOCUSATE SODIUM 100 MG CAP PO SCH ×2 (09:06→20:52)
[2023-02-12] MEDS: LOSARTAN POTASSIUM 25 MG TAB PO SCH (09:06)
[2023-02-12] MEDS: LEVETIRACETAM 500 MG TAB PO SCH (09:06)
[2023-02-12] MEDS: POLYETHYLENE GLYCOL 3350 17 GM PACK PO SCH ×2 (09:07→20:52)
[2023-02-12] MEDS: ATORVASTATIN 40 MG TAB PO SCH (09:07)
[2023-02-12] MEDS: LIDOCAINE 4% PATCH TP SCH (09:07)
[2023-02-12] MEDS ORDERED: DEXAMETHASONE SOD PHOS 10 MG/1 ML VIAL IV ONE (09:15)
[2023-02-12] MEDS: ACETAMINOPHEN 325 MG TAB PO PRN (16:08)
[2023-02-12] MEDS: MUPIROCIN 2% OINT 22 GM TUBE TOP SCH (20:49)
[2023-02-12] MEDS: BIMATOPROST(OPTH) 2.5 ML BOTTLE OP SCH (20:51)
[2023-02-13] VITALS (8 sets, daily range): BP systolic 90–141; BP diastolic 49–60; PULSE 83–113; RESP 17–20; TEMP 97.9–98.8; O2SAT 92–96
[2023-02-13 06:09] LABS: EOSINOPHILS # (AUTO) 0.1 (0.0-0.4); EOSINOPHILS % 1.2 % (0.0-6.0); HEMOGLOBIN 10.3 g/dL (12.0-16.0); LYMPHOCYTES # (AUTO) 1.6 (1.0-3.2); LYMPHOCYTES % 13.8 % (18.0-39.1); MEAN CORPUSCULAR HEMOGLOBIN 27.8 pg (28-32); MEAN CORPUSCULAR HGB CONC 33.2 g/dL (31-35); MEAN CORPUSCULAR VOLUME 83.6 fL (81-99); MONOCYTES # (AUTO) 0.7 (0.2-0.8); NEUTROPHILS # (AUTO) 8.8 (2.1-6.9); NEUTROPHILS % 78.6 % (38.7-80.0); PLATELET COUNT 409 x10e3/uL (140-360); RED BLOOD COUNT 3.71 x10e6/uL (3.6-5.1); RED CELL DISTRIBUTION WIDTH 15.1 % (11.7-14.4)
[2023-02-13 06:48] LABS: CALCIUM 7.9 mg/dL (8.4-10.2); CREATININE, SERUM 0.76 mg/dL (0.57-1.11)
[2023-02-13] MEDS: MUPIROCIN 2% OINT 22 GM TUBE TOP SCH (10:20)
[2023-02-13] MEDS: POLYETHYLENE GLYCOL 3350 17 GM PACK PO SCH ×2 (10:20→20:58)
[2023-02-13] MEDS: FERROUS SULFATE 325 MG TAB PO SCH (10:20)
[2023-02-13] MEDS: METOPROLOL SUCCINATE 50 MG TAB XL PO SCH (10:20)
[2023-02-13] MEDS: DOCUSATE SODIUM 100 MG CAP PO SCH ×2 (10:20→20:58)
[2023-02-13] MEDS: ATORVASTATIN 40 MG TAB PO SCH (10:21)
[2023-02-13] MEDS: LIDOCAINE 4% PATCH TP SCH (10:21)
[2023-02-13] MEDS: LEVETIRACETAM 500 MG TAB PO SCH ×2 (10:21→17:42)
[2023-02-13] MEDS: LOSARTAN POTASSIUM 25 MG TAB PO SCH (10:21)
[2023-02-13] MEDS ORDERED: AMLODIPINE BESYLATE 5 MG TAB PO ONE (15:30)
[2023-02-13] MEDS: BIMATOPROST(OPTH) 2.5 ML BOTTLE OP SCH (20:57)
[2023-02-14] VITALS (10 sets, daily range): BP systolic 131–156; BP diastolic 48–65; PULSE 88–100; RESP 16–24; TEMP 97.9–98.7; O2SAT 92–97
[2023-02-14] MEDS: DOCUSATE SODIUM 100 MG CAP PO SCH ×2 (09:00→21:00)
[2023-02-14] MEDS: POLYETHYLENE GLYCOL 3350 17 GM PACK PO SCH ×2 (09:00→21:00)
[2023-02-14] MEDS: METOPROLOL SUCCINATE 50 MG TAB XL PO SCH (09:31)
[2023-02-14] MEDS: AMLODIPINE BESYLATE 5 MG TAB PO SCH (09:31)
[2023-02-14] MEDS: ATORVASTATIN 40 MG TAB PO SCH (09:31)
[2023-02-14] MEDS: LEVETIRACETAM 500 MG TAB PO SCH ×3 (09:32→16:28)
[2023-02-14] MEDS: LOSARTAN POTASSIUM 25 MG TAB PO SCH (09:32)
[2023-02-14] MEDS: FERROUS SULFATE 325 MG TAB PO SCH (09:33)
[2023-02-14] MEDS: LIDOCAINE 4% PATCH TP SCH (09:33)
[2023-02-14] MEDS: MUPIROCIN 2% OINT 22 GM TUBE TOP SCH (09:33)
[2023-02-14] MEDS ORDERED: BISMUTH SUBSALICYLATE 262 MG TAB PO PRN (14:30)
[2023-02-14] MEDS: ACETAMINOPHEN 325 MG TAB PO PRN (17:06)
[2023-02-14] MEDS ORDERED: LEVETIRACETAM 500 MG TAB PO SCH (21:00)
[2023-02-14] MEDS: BIMATOPROST(OPTH) 2.5 ML BOTTLE OP SCH (21:00)
[2023-02-15] VITALS (7 sets, daily range): BP systolic 118–135; BP diastolic 45–61; PULSE 75–96; RESP 16–20; TEMP 97.7–98.6; O2SAT 95–98
[2023-02-15] MEDS: ACETAMINOPHEN 325 MG TAB PO PRN (02:46)
[2023-02-15] MEDS: DOCUSATE SODIUM 100 MG CAP PO SCH ×2 (09:00→20:44)
[2023-02-15] MEDS: POLYETHYLENE GLYCOL 3350 17 GM PACK PO SCH ×2 (09:00→20:44)
[2023-02-15] MEDS ORDERED: LEVETIRACETAM 500 MG TAB PO SCH (09:00)
[2023-02-15] MEDS: ATORVASTATIN 40 MG TAB PO SCH (09:20)
[2023-02-15] MEDS: LEVETIRACETAM 500 MG TAB PO SCH ×2 (09:20→20:45)
[2023-02-15] MEDS: AMLODIPINE BESYLATE 5 MG TAB PO SCH (09:21)
[2023-02-15] MEDS: FERROUS SULFATE 325 MG TAB PO SCH (09:21)
[2023-02-15] MEDS: METOPROLOL SUCCINATE 50 MG TAB XL PO SCH (09:21)
[2023-02-15] MEDS: LOSARTAN POTASSIUM 25 MG TAB PO SCH (09:22)
[2023-02-15] MEDS: LIDOCAINE 4% PATCH TP SCH (09:22)
[2023-02-15] MEDS: MUPIROCIN 2% OINT 22 GM TUBE TOP SCH (09:24)
[2023-02-15 09:25] LABS: BASOPHILS # (AUTO) 0.1 (0.0-0.1); BASOPHILS % 0.7 % (0.0-1.0); EOSINOPHILS # (AUTO) 0.3 (0.0-0.4); EOSINOPHILS % 3.5 % (0.0-6.0); HEMATOCRIT 33.4 % (34.2-44.1); LYMPHOCYTES # (AUTO) 1.1 (1.0-3.2); LYMPHOCYTES % 14.4 % (18.0-39.1); MEAN CORPUSCULAR HGB CONC 32.9 g/dL (31-35); MONOCYTES # (AUTO) 0.4 (0.2-0.8); MONOCYTES % 5.6 % (4.4-11.3); NEUTROPHILS # (AUTO) 5.6 (2.1-6.9); NEUTROPHILS % 75.3 % (38.7-80.0); PLATELET COUNT 367 x10e3/uL (140-360); RED BLOOD COUNT 3.93 x10e6/uL (3.6-5.1); RED CELL DISTRIBUTION WIDTH 15.6 % (11.7-14.4); WHITE BLOOD COUNT 7.45 x10e3/uL (4.8-10.8)
[2023-02-15 09:53] LABS: ALBUMIN 2.2 g/dL (3.5-5.0); ALBUMIN/GLOBULIN RATIO 0.7 (0.8-2.0); ANION GAP 11.7 mmol/L (8-16); CALCIUM 8.6 mg/dL (8.4-10.2); CREATININE, SERUM 0.77 mg/dL (0.57-1.11); POTASSIUM 3.7 mmol/L (3.5-5.1)
[2023-02-15] MEDS: BIMATOPROST(OPTH) 2.5 ML BOTTLE OP SCH (20:44)
[2023-02-16] VITALS (9 sets, daily range): BP systolic 105–147; BP diastolic 42–56; PULSE 83–94; RESP 17–18; TEMP 97.6–98.8; O2SAT 96–98
[2023-02-16] MEDS: TRAMADOL HCL 50 MG TAB PO PRN ×2 (04:12→20:18)
[2023-02-16] MEDS: POLYETHYLENE GLYCOL 3350 17 GM PACK PO SCH ×2 (08:25→21:00)
[2023-02-16] MEDS: DOCUSATE SODIUM 100 MG CAP PO SCH ×2 (08:25→21:00)
[2023-02-16] MEDS: ATORVASTATIN 40 MG TAB PO SCH (08:26)
[2023-02-16] MEDS: FERROUS SULFATE 325 MG TAB PO SCH (08:26)
[2023-02-16] MEDS: AMLODIPINE BESYLATE 5 MG TAB PO SCH (08:27)
[2023-02-16] MEDS: METOPROLOL SUCCINATE 50 MG TAB XL PO SCH (08:27)
[2023-02-16] MEDS: LEVETIRACETAM 500 MG TAB PO SCH ×2 (08:28→21:24)
[2023-02-16] MEDS: LOSARTAN POTASSIUM 25 MG TAB PO SCH (08:28)
[2023-02-16] MEDS: MUPIROCIN 2% OINT 22 GM TUBE TOP SCH (08:29)
[2023-02-16] MEDS: LIDOCAINE 4% PATCH TP SCH (08:31)
[2023-02-16] MEDS ORDERED: MUPIROCIN22 GM TOP (18:55)
[2023-02-16] MEDS ORDERED: COLACE100 M1 PO (18:55)
[2023-02-16] MEDS ORDERED: MIRALAX17 GM PO (18:55)
[2023-02-16] MEDS ORDERED: ULTRAM 50MG50 MG PO (18:55)
[2023-02-16] MEDS ORDERED: PINK BISMUTH262 MG PO (18:55)
[2023-02-16] MEDS ORDERED: ONDANSETRON ODT4 MG PO (18:55)
[2023-02-16] MEDS: BIMATOPROST(OPTH) 2.5 ML BOTTLE OP SCH (21:00)
[2023-02-17] VITALS: BP 139/46; PULSE 87; RESP 18; TEMP 98; O2SAT 97
[2023-02-17 04:00] VITALS: BP 134/52; PULSE 77; RESP 18; TEMP 98.4; O2SAT 96
[2023-02-17 07:08] VITALS: PULSE 94; RESP 18; O2SAT 95
[2023-02-17 08:00] VITALS: BP 132/46; PULSE 88; RESP 19; TEMP 98.2; O2SAT 95
[2023-02-17] MEDS: DOCUSATE SODIUM 100 MG CAP PO SCH (08:36)
[2023-02-17] MEDS: LIDOCAINE 4% PATCH TP SCH (08:36)
[2023-02-17] MEDS: POLYETHYLENE GLYCOL 3350 17 GM PACK PO SCH (08:36)
[2023-02-17] MEDS: LOSARTAN POTASSIUM 25 MG TAB PO SCH (08:36)
[2023-02-17] MEDS: LEVETIRACETAM 500 MG TAB PO SCH (08:37)
[2023-02-17] MEDS: AMLODIPINE BESYLATE 5 MG TAB PO SCH (08:37)
[2023-02-17] MEDS: METOPROLOL SUCCINATE 50 MG TAB XL PO SCH (08:37)
[2023-02-17] MEDS: ATORVASTATIN 40 MG TAB PO SCH (08:38)
[2023-02-17] MEDS: FERROUS SULFATE 325 MG TAB PO SCH (08:38)
[2023-02-17] MEDS ORDERED: APIXAB 2.5 MG TABLET PO SCH (09:00)
[2023-02-17 09:04] VITALS: BP 132/46; PULSE 88; RESP 19; TEMP 98.2; O2SAT 95
[2023-02-17] MEDS ORDERED: LIDOCAINE1 EAC1 TOP (09:06)
[2023-02-17] MEDS: ACETAMINOPHEN 325 MG TAB PO PRN (10:23)
[2023-02-17] MEDS: MUPIROCIN 2% OINT 22 GM TUBE TOP SCH (10:24)
== END 2023-02-17 10:59 | disposition home or self-care (01) | DRG 481 ==
LOC: ER 15:05 → ERHOLD 17:19 → MED/SURG3 18:21
PROVIDERS: ADMIT Internal Medicine; ATTEND Internal Medicine
PROC: 0QS736Z Reposition Left Upper Femur with Intramedullary Internal Fixation Device, Percutaneous Approach (ICD-10-PCS; principal; 2023-02-11 13:17)
DX: S72.002A Fracture of unspecified part of neck of left femur, initial encounter for closed fracture (principal); E87.1 Hypo-osmolality and hyponatremia; G81.94 Hemiplegia, unspecified affecting left nondominant side; I48.20 Chronic atrial fibrillation, unspecified; R64 Cachexia; Z68.1 Body mass index [BMI] 19.9 or less, adult; J44.9 Chronic obstructive pulmonary disease, unspecified; M19.90 Unspecified osteoarthritis, unspecified site; M06.9 Rheumatoid arthritis, unspecified; H40.9 Unspecified glaucoma; G89.29 Other chronic pain; K59.00 Constipation, unspecified; F32.A Depression, unspecified; E78.5 Hyperlipidemia, unspecified; G40.909 Epilepsy, unspecified, not intractable, without status epilepticus; W18.30XA Fall on same level, unspecified, initial encounter; R62.7 Adult failure to thrive; I11.9 Hypertensive heart disease without heart failure; R09.02 Hypoxemia; Z11.52 Encounter for screening for COVID-19; Z79.01 Long term (current) use of anticoagulants; Z86.11 Personal history of tuberculosis; Z88.2 Allergy status to sulfonamides; Z86.16 Personal history of COVID-19; Z98.1 Arthrodesis status; Z88.0 Allergy status to penicillin; Z66 Do not resuscitate
CPT/HCPCS: 36415; 51700; 70450; 70551; 71045; 71250; 72141; 76000; 80048; 80053; 81001; 82550; 82607; 82728; 82746; 83540; 83735; 83880; 84100; 84443; 84466; 84484; 85025; 85045; 85610; 85651; 85730; 87086; 93005; 93306; 94799; 99252; 99285; C1713; J0171; J0690; J1100; J2001; J2250; J2371; J2405; J2710; J2795; J2930; J7030; J7040; J7042; J7050; J8610; Q0162; U0002